=== PATIENT | female | born 1980 | race Caucasian/White ===

== ENCOUNTER 2017-08-15 10:51 | Emergency (ER) | payer MEDICAID ==
[~2017-08-15] VITALS: Ht 162.6 cm; Wt 60.9 kg
[~2017-08-15 10:51] MED LIST: CYCL-1 PO; IBUP-1985 PO; LOPE2CAP PO; NO HOME MEDS; ONDA4TAB12 PO; ONDA8TAB9 PO
[2017-08-15 10:53] VITALS: BP 106/73
[2017-08-15 11:20] LABS: CLARITY,URINE CLOUDY (Clear); COLOR,URINE YELLOW (Yellow); GLUCOSE, URINE 100 mg/dl (Neg); KETONES,URINE NEGATIVE (Neg); LEUKOCYTE ESTERASE ,URINE SMALL (Neg); NITRITES, URINE NEGATIVE (Neg); OCCULT BLOOD,URINE MODERATE (Neg); PH,URINE 5.5 (4.8-8.0); PROTEIN,URINE TRACE mg/dl (Neg)
[2017-08-15 11:21] LABS: UA COLLECTION TYPE CLN CATCH MIDSTREAM
[2017-08-15 11:23] LABS: URINE HCG NEGATIVE (NEG)
[2017-08-15 11:33] LABS: WBC,URINE 50-100 /HPF (0-4)
[2017-08-15 11:34] LABS: BACTERIA,URINE 3+ /HPF (Neg); MUCUS STRANDS MANY /LPF (Neg); SQUAMOUS EPITHELIAL CELL,UR MANY /LPF (FEW)
[2017-08-15 11:34] LABS: BASOPHILS % (AUTO) 0.4 % (0-1); EOSINOPHILS % (AUTO) 0.2 % (0-6); HEMATOCRIT 41.4 % (35.0-45.0); HEMOGLOBIN 14.2 g/dl (12.0-16.0); INR 1.1 INR; LYMPHOCYTES # (AUTO) 1.4 X10'3 (1.1-4.8); LYMPHOCYTES % (AUTO) 12.4 % (21-51); MEAN CORPUSCULAR HGB CONC 34.3 % (33.0-36.5); MEAN CORPUSCULAR VOLUME 90.5 FL (78-98); MEAN PLATELET VOLUME 7.4 FL (7.4-10.4); MONOCYTES # (AUTO) 0.5 X10'3 (0-0.9); MONOCYTES % (AUTO) 4.7 % (2-12); NEUTROPHILS # (AUTO) 9.6 X10'3 (1.8-7.7); NEUTROPHILS % (AUTO) 82.3 % (42-75); PLATELET COUNT 278 X10'3 (140-440); PROTHROMBIN TIME 10.9 SECONDS (9.0-12.0); RED BLOOD COUNT 4.58 X10'6 (4.20-5.60); RED CELL DISTRIBUTION WIDTH 12.3 % (11.5-14.5); WHITE BLOOD COUNT 11.6 X10'3 (4.5-11.0)
[2017-08-15] MEDS ORDERED: BACDS PO (11:37)
[2017-08-15 11:41] LABS: ALANINE AMINOTRANSFERASE 24 U/L (12-78); ALBUMIN/GLOBULIN RATIO 0.7 (1.1-1.5); ALKALINE PHOSPHATASE 80 IU/L (46-116); ANION GAP 9 (8-16); ASPARTATE AMINO TRANSFERASE 13 U/L (10-37); BILIRUBIN,TOTAL 0.5 MG/DL (0.1-1.0); BLOOD UREA NITROGEN 6 MG/DL (7-18); BUN/CREATININE RATIO 7.3 (6.6-38.0); CALCIUM 8.5 MG/DL (8.5-10.1); CHLORIDE 102 MMOL/L (99-107); CREATININE 0.82 MG/DL (0.40-0.90); GLUCOSE 116 MG/DL (70-104); POTASSIUM 3.1 MMOL/L (3.5-5.1); SODIUM 136 MMOL/L (135-145); TOTAL CARBON DIOXIDE 24.6 MMOL/L (24-32); TOTAL PROTEIN 7.5 G/DL (6.4-8.2); eGFR 78 ML/MIN
== END 2017-08-15 11:49 | disposition home or self-care (01) ==
LOC: ER 10:52
DX: N39.0 Urinary tract infection, site not specified (principal); Z79.899 Other long term (current) drug therapy; Z56.0 Unemployment, unspecified
CPT/HCPCS: 36415; 80053; 81001; 81025; 85025; 85610; 99284

== ENCOUNTER 2017-09-03 08:17 | Emergency (ER) | payer MEDICAID ==
[~2017-09-03] VITALS: Ht 162.6 cm; Wt 59.0 kg
[2017-09-03 08:29] VITALS: BP 97/64
[2017-09-03 09:04] LABS: URINE HCG NEGATIVE (NEG)
[2017-09-03 09:07] LABS: CLARITY,URINE CLOUDY (Clear); COLOR,URINE YELLOW (Yellow); GLUCOSE, URINE NEGATIVE (Neg); KETONES,URINE TRACE mg/dl (Neg); LEUKOCYTE ESTERASE ,URINE LARGE (Neg); NITRITES, URINE NEGATIVE (Neg); OCCULT BLOOD,URINE SMALL (Neg); PROTEIN,URINE 30 mg/dl (Neg)
[2017-09-03 09:12] LABS: UA COLLECTION TYPE CLN CATCH MIDSTREAM
[2017-09-03 09:15] LABS: WBC,URINE 50-100 /HPF (0-4)
[2017-09-03 09:16] LABS: BACTERIA,URINE 2+ /HPF (Neg); RBC,URINE 0-2 /HPF (0-2); SQUAMOUS EPITHELIAL CELL,UR MODERATE /LPF (FEW)
[2017-09-03 09:17] LABS: AMORPHOUS PHOSPHATES 1+; MUCUS STRANDS MODERATE /LPF (Neg)
[2017-09-03] MEDS ORDERED: PHEN-716 PO (09:27)
[2017-09-03] MEDS ORDERED: CEPH500C5 PO (09:27)
== END 2017-09-03 09:39 | disposition home or self-care (01) ==
LOC: ER 08:17
DX: N39.0 Urinary tract infection, site not specified (principal); Z79.899 Other long term (current) drug therapy; Z56.0 Unemployment, unspecified
CPT/HCPCS: 81001; 81025; 87077; 87088; 87186; 99284

== ENCOUNTER 2018-02-02 08:10 | Emergency (ER) | payer MEDICAID ==
[~2018-02-02] VITALS: Ht 162.6 cm; Wt 61.4 kg
[~2018-02-02 08:10] MED LIST changes: +CEPH500C5 PO; +PHEN-716 PO
[2018-02-02] MEDS ORDERED: CLIN150C2 PO (08:57)
[2018-02-02 09:32] VITALS: BP 80/49
== END 2018-02-02 09:34 | disposition home or self-care (01) ==
LOC: ER 08:10
DX: L02.31 Cutaneous abscess of buttock (principal); F15.90 Other stimulant use, unspecified, uncomplicated; Z79.2 Long term (current) use of antibiotics; Z79.899 Other long term (current) drug therapy; Z56.0 Unemployment, unspecified
CPT/HCPCS: 99283

== ENCOUNTER 2018-04-21 12:54 | Emergency (ER) | payer MEDICAID ==
[~2018-04-21] VITALS: Ht 154.9 cm; Wt 61.3 kg
[2018-04-21 13:26] VITALS: BP 93/64
[2018-04-21] MEDS ORDERED: ibuprofen 200mg tablet PO ONE (13:55)
--- NOTE | 2018-04-21 14:15 | NUR ---
pt ambulating independently, pt medication given for pain and pain conrolled. d/c instructions given with education. pt verbalized understanding on followup plan and when if necessary to return to ER.
== END 2018-04-21 14:20 | disposition home or self-care (01) ==
LOC: ER 12:55
DX: R07.81 Pleurodynia (principal); F17.200 Nicotine dependence, unspecified, uncomplicated; F12.10 Cannabis abuse, uncomplicated; F15.10 Other stimulant abuse, uncomplicated; Z56.0 Unemployment, unspecified; Z79.899 Other long term (current) drug therapy
CPT/HCPCS: 71046; 99283

== ENCOUNTER 2019-02-09 17:24 | Emergency (ER) | payer MEDICAID ==
[~2019-02-09] VITALS: Ht 162.6 cm; Wt 61.4 kg
[~2019-02-09 17:24] MED LIST changes: -CEPH500C5 PO
[2019-02-09 17:49] VITALS: BP 128/85
--- NOTE | 2019-02-09 18:52 | NUR ---
PT CALLED TO BE ROOMED IN MAIN ER - SHE IS SITTING IN LOBBY BUT DOESN'T WISH TO COME BACK. AWARE AND HAS ALREADY SEEN PT. SHE IS NOW UP FOR D\C.
== END 2019-02-09 18:57 | disposition home or self-care (01) ==
LOC: ER 17:25
DX: F10.129 Alcohol abuse with intoxication, unspecified (principal); R51 Headache; F12.90 Cannabis use, unspecified, uncomplicated; F15.90 Other stimulant use, unspecified, uncomplicated; F17.200 Nicotine dependence, unspecified, uncomplicated; Z56.0 Unemployment, unspecified; Z98.890 Other specified postprocedural states; Z79.899 Other long term (current) drug therapy; Z59.0 Homelessness; Y90.0 Blood alcohol level of less than 20 mg/100 ml
CPT/HCPCS: 36415; 80320; 99283

== ENCOUNTER 2019-04-05 20:27 | Emergency (ER) | payer MEDICAID ==
[~2019-04-05] VITALS: Ht 157.5 cm; Wt 68.2 kg
[2019-04-05] MEDS ORDERED: thiamine 100mg tablet PO ONE (20:40)
[2019-04-05] MEDS ORDERED: normal saline 1000ML IV soln IVB ONE (20:40)
[2019-04-05] MEDS ORDERED: phenobarbital inj 260 MG in normal saline 100ml IV soln 100 ML IV ONE (20:40)
[2019-04-05] MEDS ORDERED: magnesium oxide 400mg tablet PO ONE (20:40)
--- NOTE | 2019-04-05 21:03 | NUR ---
she pulled out her IV there is blood on her leg. Will clean. made aware.
[2019-04-05 21:17] LABS: ALANINE AMINOTRANSFERASE 64 U/L (12-78); ALBUMIN 3.8 G/DL (3.4-5.0); ALBUMIN/GLOBULIN RATIO 1.2 (1.1-1.5); ALKALINE PHOSPHATASE 57 IU/L (46-116); ANION GAP 11 (8-16); ASPARTATE AMINO TRANSFERASE 42 U/L (10-37); BILIRUBIN,TOTAL 0.1 MG/DL (0.1-1.0); BLOOD UREA NITROGEN 8 MG/DL (7-18); BUN/CREATININE RATIO 12.3 (6.6-38.0); CALCIUM 7.9 MG/DL (8.5-10.1); CHLORIDE 108 MMOL/L (99-107); CREATININE 0.65 MG/DL (0.40-0.90); GLUCOSE 135 MG/DL (70-104); POTASSIUM 3.6 MMOL/L (3.5-5.1); SODIUM 146 MMOL/L (135-145); TOTAL PROTEIN 7.1 G/DL (6.4-8.2); eGFR > 90 ML/MIN
[2019-04-05 21:18] LABS: MAGNESIUM 2.2 MG/DL (1.5-2.4)
[2019-04-05 21:21] LABS: ETHANOL 0.424 GM/DL (0.0-0.010)
[2019-04-05 21:32] LABS: BASOPHILS # (AUTO) 0.1 X10'3 (0-0.2); BASOPHILS % (AUTO) 0.9 % (0-1); EOSINOPHILS % (AUTO) 0.6 % (0-6); HEMATOCRIT 41.8 % (35.0-45.0); HEMOGLOBIN 14.4 g/dl (12.0-16.0); LYMPHOCYTES # (AUTO) 2.3 X10'3 (1.1-4.8); MEAN CORPUSCULAR HEMOGLOBIN 31.5 PG (27.0-31.0); MEAN CORPUSCULAR HGB CONC 34.4 g/dL (33.0-36.5); MEAN CORPUSCULAR VOLUME 91.8 FL (78-98); MEAN PLATELET VOLUME 7.4 FL (7.4-10.4); MONOCYTES # (AUTO) 0.3 X10'3 (0-0.9); MONOCYTES % (AUTO) 5.3 % (2-12); NEUTROPHILS # (AUTO) 3.3 X10'3 (1.8-7.7); NEUTROPHILS % (AUTO) 54.2 % (42-75); PLATELET COUNT 274 X10'3 (140-440); RED BLOOD COUNT 4.55 X10'6 (4.20-5.60); RED CELL DISTRIBUTION WIDTH 12.5 % (11.5-14.5)
[2019-04-05] MEDS ORDERED: ondansetron/PF 4mg/2ml inj IV ONE (22:25)
--- NOTE | 2019-04-05 22:36 | NUR ---
pt asleep on her right side.
--- NOTE | 2019-04-05 23:05 | NUR ---
pt urinated the bed, techs will change her and place dry flows under her
--- NOTE | 2019-04-05 23:38 | NUR ---
pt asleep on her left side
[2019-04-06 02:12] VITALS: BP 98/50
--- NOTE | 2019-04-06 02:46 | NUR ---
SHE IS AWAKE AND WALKED TO THE BR AND IS HUNGRY SO I BROUGHT HER FOOD/DRINKS.
== END 2019-04-06 03:26 | disposition home or self-care (01) ==
LOC: ER 20:27
DX: F10.129 Alcohol abuse with intoxication, unspecified (principal); F41.9 Anxiety disorder, unspecified; F12.90 Cannabis use, unspecified, uncomplicated; F15.90 Other stimulant use, unspecified, uncomplicated; Z98.890 Other specified postprocedural states; Z56.0 Unemployment, unspecified; Z79.899 Other long term (current) drug therapy; Z59.0 Homelessness; Y90.0 Blood alcohol level of less than 20 mg/100 ml
CPT/HCPCS: 36415; 80053; 80320; 83735; 85025; 93005; 96365; 96375; 99284; J2405; J7030

== ENCOUNTER 2019-09-09 12:52 | Emergency (ER) | payer MEDICAID ==
[~2019-09-09] VITALS: Ht 162.6 cm; Wt 61.3 kg
[2019-09-09 13:00] VITALS: BP 142/88
[2019-09-09 13:50] LABS: BASOPHILS # (AUTO) 0.1 X10'3 (0-0.2); EOSINOPHILS % (AUTO) 0.2 % (0-6); HEMATOCRIT 40.8 % (35.0-45.0); HEMOGLOBIN 13.8 g/dl (12.0-16.0); LYMPHOCYTES # (AUTO) 2.1 X10'3 (1.1-4.8); LYMPHOCYTES % (AUTO) 29.6 % (21-51); MEAN CORPUSCULAR HEMOGLOBIN 31.1 PG (27.0-31.0); MEAN CORPUSCULAR VOLUME 91.5 FL (78-98); MEAN PLATELET VOLUME 7.6 FL (7.4-10.4); MONOCYTES # (AUTO) 0.4 X10'3 (0-0.9); NEUTROPHILS # (AUTO) 4.4 X10'3 (1.8-7.7); NEUTROPHILS % (AUTO) 63.2 % (42-75); PLATELET COUNT 282 X10'3 (140-440); RED BLOOD COUNT 4.45 X10'6 (4.20-5.60); RED CELL DISTRIBUTION WIDTH 13.2 % (11.5-14.5)
[2019-09-09 14:06] LABS: URINE HCG NEGATIVE (NEG)
[2019-09-09 14:13] LABS: ALANINE AMINOTRANSFERASE 32 U/L (12-78); ALBUMIN/GLOBULIN RATIO 1.1 (1.1-1.5); ALKALINE PHOSPHATASE 46 IU/L (46-116); ANION GAP 12 (8-16); ASPARTATE AMINO TRANSFERASE 40 U/L (10-37); BILIRUBIN,TOTAL 0.2 MG/DL (0.1-1.0); BLOOD UREA NITROGEN 18 MG/DL (7-18); BUN/CREATININE RATIO 20.2 (6.6-38.0); CALCIUM 8.6 MG/DL (8.5-10.1); CHLORIDE 103 MMOL/L (99-107); CREATININE 0.89 MG/DL (0.40-0.90); GLUCOSE 88 MG/DL (70-104); LIPASE 71 U/L (73-393); POTASSIUM 3.6 MMOL/L (3.5-5.1); SODIUM 139 MMOL/L (135-145); TOTAL CARBON DIOXIDE 24.4 MMOL/L (24-32); TOTAL PROTEIN 7.5 G/DL (6.4-8.2); eGFR 70 ML/MIN
[2019-09-09 14:20] LABS: CLARITY,URINE CLOUDY (Clear); COLOR,URINE YELLOW (Yellow); GLUCOSE, URINE NEGATIVE (Neg); KETONES,URINE NEGATIVE (Neg); LEUKOCYTE ESTERASE ,URINE NEGATIVE (Neg); NITRITES, URINE NEGATIVE (Neg); OCCULT BLOOD,URINE TRACE-LYSED (Neg); PROTEIN,URINE NEGATIVE (Neg)
[2019-09-09 14:31] LABS: UA COLLECTION TYPE CLN CATCH MIDSTREAM
[2019-09-09 14:36] LABS: AMORPHOUS PHOSPHATES 4+; BACTERIA,URINE FEW /HPF (Neg); HYALINE CASTS 0-3 /LPF (NEGATIVE); MUCUS STRANDS MODERATE /LPF (Neg); RBC,URINE 0-2 /HPF (0-2); SQUAMOUS EPITHELIAL CELL,UR MODERATE /LPF (FEW); WBC,URINE 0-4 /HPF (0-4)
[2019-09-09 14:50] LABS: ETHANOL 0.039 GM/DL (0.0-0.010)
[2019-09-09 17:25] LABS: URINE AMPHETAMINE SCREEN POSITIVE (Neg); URINE BARBITUATE SCREEN NEGATIVE (Neg); URINE BENZODIAZEPINES SCREEN NEGATIVE (Neg); URINE CANNABINOID SCREEN NEGATIVE (Neg); URINE COCAINE SCREEN NEGATIVE (Neg); URINE METHADONE SCREEN NEGATIVE (Neg); URINE OPIATE SCREEN NEGATIVE (Neg); URINE PHENCYCLIDINE SCREEN NEGATIVE (Neg)
== END 2019-09-09 14:32 | disposition home or self-care (01) ==
LOC: ER 12:53
DX: F10.20 Alcohol dependence, uncomplicated (principal); E86.0 Dehydration; R10.84 Generalized abdominal pain; F41.9 Anxiety disorder, unspecified; F12.90 Cannabis use, unspecified, uncomplicated; F15.90 Other stimulant use, unspecified, uncomplicated; Z98.890 Other specified postprocedural states; Z72.89 Other problems related to lifestyle; Z56.0 Unemployment, unspecified; Z79.899 Other long term (current) drug therapy; Y90.0 Blood alcohol level of less than 20 mg/100 ml
CPT/HCPCS: 36415; 80053; 80305; 80320; 81001; 81025; 83690; 85025; 99284

== ENCOUNTER 2021-05-04 10:37 | Emergency (ER) | payer MEDICAID ==
[~2021-05-04] VITALS: Ht 162.6 cm; Wt 75.0 kg
[2021-05-04 11:05] VITALS: BP 108/73
[2021-05-04] MEDS ORDERED: ibuprofen tablet 400 MG TABLET PO ONE (13:00)
[2021-05-04] MEDS ORDERED: HYDROcodone/acetaminophen 10/325mg tab PO ONE (13:00)
[2021-05-04] MEDS ORDERED: IBUP-1986 PO ×2 (13:19→14:17)
== END 2021-05-04 13:40 | disposition home or self-care (01) ==
LOC: ER 10:37
DX: S82.62XA Displaced fracture of lateral malleolus of left fibula, initial encounter for closed fracture (principal); M25.572 Pain in left ankle and joints of left foot; F41.9 Anxiety disorder, unspecified; F17.200 Nicotine dependence, unspecified, uncomplicated; F12.90 Cannabis use, unspecified, uncomplicated; F15.90 Other stimulant use, unspecified, uncomplicated; Z72.89 Other problems related to lifestyle; Z56.0 Unemployment, unspecified; Z98.890 Other specified postprocedural states; Z79.899 Other long term (current) drug therapy; W19.XXXA Unspecified fall, initial encounter; Y93.01 Activity, walking, marching and hiking; Y92.89 Other specified places as the place of occurrence of the external cause; Y99.8 Other external cause status
CPT/HCPCS: 29515; 73610; 99284

== ENCOUNTER 2021-11-02 13:49 | Emergency (ER) | payer MEDICAID ==
[~2021-11-02] VITALS: Ht 162.6 cm; Wt 69.5 kg
[~2021-11-02 13:49] MED LIST changes: -CYCL-1 PO; -IBUP-1985 PO; +IBUP-1986 PO; -LOPE2CAP PO; -ONDA4TAB12 PO; -ONDA8TAB9 PO; -PHEN-716 PO
[2021-11-02 14:52] VITALS: BP 125/95
--- NOTE | 2021-11-02 15:51 | NUR ---
pt states shes not waiting anylonger. ama'd [id number]
== END 2021-11-02 15:54 | disposition left against medical advice (07) ==
LOC: ER 13:50
DX: R51.9 Headache, unspecified (principal); Z53.21 Procedure and treatment not carried out due to patient leaving prior to being seen by health care provider

== ENCOUNTER 2023-03-15 14:33 | Emergency (ER) | payer MEDICAID ==
[~2023-03-15] VITALS: Ht 162.6 cm; Wt 70.2 kg
[2023-03-15] MEDS ORDERED: phenazopyridine 100mg tablet PO ONE (14:40)
[2023-03-15] MEDS ORDERED: ondansetron 4mg rapidly disintigrating tab PO ONE (14:40)
[2023-03-15] MEDS ORDERED: CefTRIAXone 2gm/D5W 50ml BAG 50 ML IV ONE (14:40)
[2023-03-15] MEDS ORDERED: ketorolac tromethamine 15mg/ml inj. IM ONE (14:40)
[2023-03-15] MEDS ORDERED: normal saline 1000ML IV soln IV ONE (14:40)
[2023-03-15 15:11] LABS: URINE HCG NEGATIVE (NEG)
[2023-03-15 15:36] LABS: BILIRUBIN,URINE NEGATIVE (Neg); CLARITY,URINE CLOUDY (Clear); COLOR,URINE YELLOW (Yellow); GLUCOSE, URINE NEGATIVE (Neg); KETONES,URINE NEGATIVE (Neg); LEUKOCYTE ESTERASE ,URINE MODERATE (Neg); OCCULT BLOOD,URINE MODERATE (Neg); PROTEIN,URINE 100 mg/dl (Neg); UROBILINOGEN,URINE 0.2 E.U/dL (0.2-1.0)
[2023-03-15 16:22] LABS: UA COLLECTION TYPE CLN CATCH MIDSTREAM
[2023-03-15 16:25] LABS: NITRITES, URINE NEGATIVE (Neg)
[2023-03-15 16:33] LABS: SQUAMOUS EPITHELIAL CELL,UR MODERATE /LPF (FEW); WBC,URINE TNTC /HPF (0-4)
[2023-03-15 16:34] LABS: BACTERIA,URINE FEW /HPF (Neg)
[2023-03-15] MEDS ORDERED: ketorolac trometh. 30mg/ml inj. IV ONE (17:00)
[2023-03-15 18:22] LABS: BASOPHILS % (AUTO) 0.4 % (0-1); EOSINOPHILS % (AUTO) 0.2 % (0-6); HEMATOCRIT 41.7 % (35.0-45.0); HEMOGLOBIN 13.9 g/dl (12.0-16.0); LYMPHOCYTES # (AUTO) 1.8 X10'3 (1.1-4.8); LYMPHOCYTES % (AUTO) 14.1 % (21-51); MEAN CORPUSCULAR HEMOGLOBIN 29.9 PG (27.0-31.0); MEAN CORPUSCULAR HGB CONC 33.4 g/dL (33.0-36.5); MEAN CORPUSCULAR VOLUME 89.7 FL (78-98); MONOCYTES % (AUTO) 7.5 % (2-12); NEUTROPHILS % (AUTO) 77.8 % (42-75); PLATELET COUNT 308 X10'3 (140-440); RED BLOOD COUNT 4.65 X10'6 (4.20-5.60); RED CELL DISTRIBUTION WIDTH 12.6 % (11.5-14.5); WHITE BLOOD COUNT 12.8 X10'3 (4.5-11.0)
[2023-03-15 18:29] LABS: ALBUMIN 3.4 G/DL (3.4-5.0); ANION GAP 12 (8-16); BLOOD UREA NITROGEN 10 MG/DL (7-18); BUN/CREATININE RATIO 12.7 (10.0-20.0); CALCIUM 8.9 MG/DL (8.5-10.1); CHLORIDE 98 MMOL/L (99-107); CREATININE 0.79 MG/DL (0.40-0.90); GLUCOSE 83 MG/DL (70-104); MAGNESIUM 2.2 MG/DL (1.5-2.4); SODIUM 134 MMOL/L (135-145); TOTAL CARBON DIOXIDE 24.4 MMOL/L (24-32); eCRCL 78 ML/MIN; eGFR 79 ML/MIN
[2023-03-15 18:30] LABS: POTASSIUM 4.3 MMOL/L (3.5-5.1)
[2023-03-15] MEDS ORDERED: ONDA8TAB13 PO (18:54)
[2023-03-15] MEDS ORDERED: CIPR500T88 PO (18:54)
[2023-03-15] MEDS ORDERED: IBUP-1986 PO (18:54)
[2023-03-15 19:05] LABS: SYPHILIS SCREENING TEST POC POSITIVE (Negative)
[2023-03-15 21:14] VITALS: BP 108/62; PULSE 61; TEMP 98; O2SAT 99
[2023-03-15 21:16] VITALS: RESP 16
== END 2023-03-15 21:18 | disposition home or self-care (01) ==
LOC: ER 14:34
DX: N10 Acute pyelonephritis (principal); F17.200 Nicotine dependence, unspecified, uncomplicated; F12.90 Cannabis use, unspecified, uncomplicated; F15.90 Other stimulant use, unspecified, uncomplicated; Z79.1 Long term (current) use of non-steroidal anti-inflammatories (NSAID); Z98.890 Other specified postprocedural states
CPT/HCPCS: 36415; 71045; 74176; 80048; 81001; 81025; 83605; 83735; 84145; 85025; 86592; 87040; 87077; 87088; 87186; 87210; 93005; 96360; 96361; 99285; J7030

== ENCOUNTER 2023-07-23 13:32 | Emergency (ER) | payer MEDICAID ==
[~2023-07-23] VITALS: Ht 162.6 cm; Wt 75.6 kg
[~2023-07-23 13:32] MED LIST changes: +ONDA8TAB13 PO
[2023-07-23] MEDS ORDERED: ZINC57OI3 TOP (15:05)
[2023-07-23] MEDS ORDERED: DIF150T PO (15:05)
[2023-07-23 15:34] VITALS: BP 128/91; PULSE 71; RESP 16; TEMP 98; O2SAT 97
== END 2023-07-23 15:36 | disposition home or self-care (01) ==
LOC: ER 13:33
DX: B35.6 Tinea cruris (principal); B37.2 Candidiasis of skin and nail; F41.9 Anxiety disorder, unspecified; F12.90 Cannabis use, unspecified, uncomplicated; F15.90 Other stimulant use, unspecified, uncomplicated; Z56.0 Unemployment, unspecified; Z72.89 Other problems related to lifestyle; Z79.899 Other long term (current) drug therapy
CPT/HCPCS: 99283

== ENCOUNTER 2024-05-08 09:23 | Emergency (ER) | payer MEDICAID ==
[~2024-05-08] VITALS: Ht 162.6 cm; Wt 70.9 kg
[~2024-05-08 09:23] MED LIST changes: +ONDA-245 PO; -ONDA8TAB13 PO; +ZINC57OI3 TOP
[2024-05-08 09:32] VITALS: BP 111/80; PULSE 77; RESP 16; O2SAT 97
[2024-05-08] MEDS ORDERED: MUPI22OI30 TOP (09:54)
== END 2024-05-08 10:06 | disposition home or self-care (01) ==
LOC: ER 09:23
DX: L02.821 Furuncle of head [any part, except face] (principal); F12.90 Cannabis use, unspecified, uncomplicated; F15.90 Other stimulant use, unspecified, uncomplicated; F41.9 Anxiety disorder, unspecified; F10.10 Alcohol abuse, uncomplicated; Y90.9 Presence of alcohol in blood, level not specified; Z56.0 Unemployment, unspecified; Z79.1 Long term (current) use of non-steroidal anti-inflammatories (NSAID); Z79.899 Other long term (current) drug therapy; Z98.890 Other specified postprocedural states
CPT/HCPCS: 99283

== ENCOUNTER 2024-05-12 11:07 | Emergency (ER) | payer MEDICAID ==
[~2024-05-12] VITALS: Ht 165.1 cm; Wt 70.8 kg
[~2024-05-12 11:07] MED LIST changes: +MUPI22OI30 TOP
[2024-05-12 12:09] VITALS: BP 119/97; PULSE 86; RESP 16; TEMP 98.9; O2SAT 99
== END 2024-05-12 12:05 | disposition home or self-care (01) ==
LOC: ER 11:08
DX: Z02.9 Encounter for administrative examinations, unspecified (principal); F41.9 Anxiety disorder, unspecified; F12.90 Cannabis use, unspecified, uncomplicated; F15.90 Other stimulant use, unspecified, uncomplicated; F10.10 Alcohol abuse, uncomplicated; Z56.0 Unemployment, unspecified; Z79.1 Long term (current) use of non-steroidal anti-inflammatories (NSAID); Z79.899 Other long term (current) drug therapy; Y90.9 Presence of alcohol in blood, level not specified
CPT/HCPCS: 99281

== ENCOUNTER 2024-05-15 10:17 | Emergency (ER) | payer MEDICAID ==
[~2024-05-15] VITALS: Ht 162.6 cm; Wt 70.7 kg
[~2024-05-15 10:17] MED LIST changes: -MUPI22OI30 TOP
[2024-05-15 10:29] VITALS: BP 129/93; PULSE 87; O2SAT 100
[2024-05-15 11:18] VITALS: RESP 16
[2024-05-15] MEDS: ketorolac trometh 15mg/ml vial 15 MG/ML ML IM ONE (11:18)
[2024-05-15] MEDS: TETanus/Pertussis (Acell)/Diphther VAC/PF (Tdap-Adult) 0.5ml syringe IMVAC ONE (11:21)
[2024-05-15] MEDS: LIDOcaine 1% W/epiNEPHrine 1:100,000 20ml vial IJ ONE (11:29)
[2024-05-15] MEDS ORDERED: SULF1TAB49 PO (12:37)
[2024-05-15 12:40] VITALS: TEMP 98
== END 2024-05-15 12:41 | disposition home or self-care (01) ==
LOC: ER 10:18
DX: L02.811 Cutaneous abscess of head [any part, except face] (principal); F12.90 Cannabis use, unspecified, uncomplicated; F15.90 Other stimulant use, unspecified, uncomplicated; F41.9 Anxiety disorder, unspecified; F10.10 Alcohol abuse, uncomplicated; Z56.0 Unemployment, unspecified; Z79.1 Long term (current) use of non-steroidal anti-inflammatories (NSAID); Z79.899 Other long term (current) drug therapy; Z98.890 Other specified postprocedural states; Y90.9 Presence of alcohol in blood, level not specified
CPT/HCPCS: 10060; 90471; 90715; 96372; 99284; A6266; J1885; A6449

== ENCOUNTER 2024-05-20 07:20 | Emergency (ER) | payer MEDICAID ==
[~2024-05-20] VITALS: Ht 162.6 cm; Wt 71.6 kg
[~2024-05-20 07:20] MED LIST changes: +SULF1TAB49 PO
[2024-05-20 07:23] VITALS: BP 119/81; PULSE 80; RESP 16; TEMP 97.9; O2SAT 100
== END 2024-05-20 08:09 | disposition home or self-care (01) ==
LOC: ER 07:20
DX: F10.90 Alcohol use, unspecified, uncomplicated (principal); Y90.9 Presence of alcohol in blood, level not specified; F15.90 Other stimulant use, unspecified, uncomplicated; F12.90 Cannabis use, unspecified, uncomplicated
CPT/HCPCS: 99281

== ENCOUNTER 2024-06-26 22:27 | Emergency (ER) | payer MEDICAID ==
[~2024-06-26] VITALS: Ht 162.6 cm; Wt 60.9 kg
[~2024-06-26 22:27] MED LIST changes: -SULF1TAB49 PO
[2024-06-26 22:34] VITALS: TEMP 98.7
[2024-06-26 23:06] LABS: BASOPHILS # (AUTO) 0.1 X10'3 (0-0.2); BASOPHILS % (AUTO) 0.8 % (0-1); EOSINOPHILS % (AUTO) 0.2 % (0-6); HEMATOCRIT 40.6 % (35.0-45.0); HEMOGLOBIN 14.1 g/dl (12.0-16.0); LYMPHOCYTES # (AUTO) 2.1 X10'3 (1.1-4.8); LYMPHOCYTES % (AUTO) 27.7 % (21-51); MEAN CORPUSCULAR HEMOGLOBIN 30.8 PG (27.0-31.0); MEAN CORPUSCULAR HGB CONC 34.7 g/dL (33.0-36.5); MEAN CORPUSCULAR VOLUME 88.6 FL (78-98); MEAN PLATELET VOLUME 7.2 FL (7.4-10.4); MONOCYTES # (AUTO) 0.5 X10'3 (0-0.9); MONOCYTES % (AUTO) 6.3 % (2-12); PLATELET COUNT 297 X10'3 (140-440); RED BLOOD COUNT 4.58 X10'6 (4.20-5.60); RED CELL DISTRIBUTION WIDTH 12.6 % (11.5-14.5); WHITE BLOOD COUNT 7.8 X10'3 (4.5-11.0)
[2024-06-26 23:29] LABS: ALANINE AMINOTRANSFERASE 61 U/L (12-78); ALBUMIN 4.4 G/DL (3.4-5.0); ALBUMIN/GLOBULIN RATIO 1.4 (1.1-1.5); ALKALINE PHOSPHATASE 68 IU/L (46-116); AMYLASE 26 U/L (25-115); ANION GAP 12 (8-16); ASPARTATE AMINO TRANSFERASE 30 U/L (10-37); BILIRUBIN,TOTAL 0.7 MG/DL (0.1-1.0); BLOOD UREA NITROGEN 16 MG/DL (7-18); BUN/CREATININE RATIO 15.5 (10.0-20.0); CALCIUM 9.2 MG/DL (8.5-10.1); CHLORIDE 104 MMOL/L (99-107); CREATININE 1.03 MG/DL (0.40-0.90); GLUCOSE 98 MG/DL (70-104); LIPASE 21 U/L (16-77); SODIUM 141 MMOL/L (135-145); TOTAL CARBON DIOXIDE 24.6 MMOL/L (24-32); TOTAL PROTEIN 7.5 G/DL (6.4-8.2); eCRCL 59 ML/MIN; eGFR 58 ML/MIN
--- NOTE | 2024-06-27 00:19 | Physician Documentation ---
History of Present Illness ~ Chief Complaint: Abdominal Pain Stated Complaint: ABD PAIN Time Seen by MD: 00:09 Primary Medical Doctor: NO PMD HPI Patient presents to the emergency room for evaluation of intermittent abdominal pain. She reports this pain has been going on for the past six months but got worse tonight. Symptoms are bilateral but greater on the left with cramping lasting a proximally 20 seconds every 5 minutes. Regular bowel movements. She reports that she just finished her menstrual cycle of one-week ago. Denies any dysuria or history of constipation. No fevers. Medication Reconciliation Allergies: Coded Allergies: No Known Allergies (Unverified , 06/26/24) Scheduled Ibuprofen (Ibuprofen), 1 TAB PO Q8H Ibuprofen (Ibuprofen), 1 TAB PO Q8H Ibuprofen (Ibuprofen), 1 TAB PO Q8H Zinc Oxide (Desitin), 1 APPLIC TOP Q6H Scheduled PRN Ondansetron 8mg ODT (Ondansetron Odt), 1 TAB PO TID PRN for nausea/vomiting Miscellaneous Medications Home Med List (No Home Medications), (Reported) Past Medical History Past Medical History: MRSA Abscess, Anxiety Past Surgical History: Alcohol Use: Abuse Drug Use: marijuana, methamphetamine Lives with: Family Lives In: Home Occupation: unemployed Review of Systems ROS All review of systems negative except as per HPI Physical Exam Vital Signs: Temperature: 98.7, Source: Temporal, Heart Rate: 88, Respiratory Rate: 16, BP: 125/83, Pulse Oximetry: 100, Weight: 60.900 Oxygen Flow Rate: 0 Physical Exam General: Patient is awake, alert, oriented x4 in no acute distress and well appearing.~ Head: Normocephalic and atraumatic. Eyes: Conjunctival normal. EOMI. PERRL. ENT: Mucous membranes moist. Neck: Supple, trachea is midline. Chest: Clear to auscultation bilaterally without rales, rhonchi, or wheezes. There is no accessory muscle use or retractions. Cardiac: RRR without murmurs, gallops, or rubs. Abd: Soft, nondistended, mild tenderness to deep palpation on left abdomen without peritonitis. No adnexal tenderness Progress Results/Orders Results/Orders Orders - LOI BENAVIDES MD Cult Urine + [address] (06/27/24 01:46) Completed Orders - LOI BENAVIDES MD Hcg, Ur Ql (06/26/24 22:38) Cbc/Diff (06/26/24 22:38) BMP (06/26/24 22:38) Amylase (06/26/24 22:38) Lipase (06/26/24 22:38) CMP (06/26/24 22:38) Ibuprofen Tablet (Motrin Tablet) (06/27/24 00:30) Dicyclomine Capsule (Bentyl Capsule) (06/27/24 00:30) Ua W/Microscopic, Cult If Ind (06/27/24 00:40) Medications Received in ER Medications (Trade) Dose Ordered Sig/Tan Route PRN Reason Start Time Stop Time Status Last Admin Dose Admin (Motrin tablet) 800 mg ONCE ONCE PO 06/27/24 00:30 06/27/24 00:31 DC 06/27/24 00:40 800 MG (Bentyl capsule) 20 mg ONCE ONCE PO 06/27/24 00:30 06/27/24 00:31 DC 06/27/24 00:40 20 MG Vital Signs 06/26/24 06/27/24 22:34 00:34 Temp 98.7 Pulse 88 70 Resp 16 14 B/P (MAP) 125/83 131/82 (98) Pulse Ox 100 99 O2 Flow Rate 0 0 Laboratory Tests Test 06/26/24 23:01 06/27/24 00:40 White Blood Count 7.8 Red Blood Count 4.58 Hemoglobin 14.1 Hematocrit 40.6 Mean Corpuscular Volume 88.6 Mean Corpuscular Hemoglobin 30.8 Mean Corpuscular Hemoglobin Concent 34.7 Red Cell Distribution Width 12.6 Platelet Count 297 Mean Platelet Volume 7.2 L Neutrophils (%) (Auto) 65.0 Lymphocytes (%) (Auto) 27.7 Monocytes (%) (Auto) 6.3 Eosinophils (%) (Auto) 0.2 Basophils (%) (Auto) 0.8 Neutrophils # (Auto) 5.0 Lymphocytes # (Auto) 2.1 Monocytes # (Auto) 0.5 Eosinophils # (Auto) 0.0 Basophils # (Auto) 0.1 CBC Comment Sodium Level 141 Potassium Level 4.0 Chloride Level 104 Carbon Dioxide Level 24.6 Anion Gap 12 Blood Urea Nitrogen 16 Creatinine 1.03 H Estimated GFR/1.73 m2 58 BUN/Creatinine Ratio 15.5 Glucose Level 98 Calcium Level 9.2 Total Bilirubin 0.7 Aspartate Amino Transf (AST/SGOT) 30 Alanine Aminotransferase (ALT/SGPT) 61 Alkaline Phosphatase 68 Total Protein 7.5 Albumin 4.4 Globulin 3.1 Albumin/Globulin Ratio 1.4 Amylase Level 26 Lipase 21 Chemistry Comments Urine Specimen Description Cln catch midstream Urine Color Yellow Urine Clarity Clear Urine pH 6.0 Urine Specific [place] 1.020 Urine Protein Negative Urine Glucose (UA) Negative Urine Ketones 40 H Urine Occult Blood Negative Urine Nitrite Negative Urine Bilirubin Negative Urine Urobilinogen 0.2 Urine Leukocyte Esterase Small H Urine RBC 0-2 Urine WBC 5-10 H Urine Squamous Epithelial Cells Moderate Urine Bacteria Few Urine Mucus Moderate Urine Culture Indicated Indicated Volume Urine Centrifuged 10 ml Urine HCG, Qualitative Negative Urine Comment Medical Decision Making Findings Patient presents to the emergency room with abdominal pain as per HPI. Differentials include but are not limited to menstrual cramps, gas, con stipation, intra-abdominal infection therefore emergent labs ordered which were reassuring. Symptoms have improved. Given risks versus benefits of radiation exposure and reassuring history physical exam and labs and he had not feel patient requires a CT scan. I do not suspect gallbladder pathology. Conservative management discussed. Departure Disposition: HOME / SELF CARE / HOMELESS Impression: Primary Impression: Abdominal pain Condition: Stable Discharge Instructions: Abdominal Pain (Nonspecific) Referrals: NO PRIMARY CARE PROVIDER (PCP) Prescriptions Dicyclomine Hcl* (Bentyl*) 10 Mg Capsule 1 CAP PO Q8H for Cramping for 30 Days, #90 CAP Prov: LOI BENAVIDES MD 06/27/24 Education Educated: Patient Educated regarding: diagnosis, need for follow up Signature Scribe Signature: No scribe Attestation: The note accurately reflects work and decisions made by me.Loi Benavides MD 06/27/24 01:50 LOI BENAVIDES MD June 27, 2024 00:19
[2024-06-27] MEDS: ibuprofen tablet 400 MG TABLET PO ONE (00:40)
[2024-06-27] MEDS: dicyclomine 10 MG capsule PO ONE (00:40)
[2024-06-27 00:52] LABS: URINE HCG NEGATIVE (NEG)
[2024-06-27 01:37] LABS: BILIRUBIN,URINE NEGATIVE (Neg); CLARITY,URINE CLEAR (Clear); COLOR,URINE YELLOW (Yellow); GLUCOSE, URINE NEGATIVE (Neg); LEUKOCYTE ESTERASE ,URINE SMALL (Neg); NITRITES, URINE NEGATIVE (Neg); OCCULT BLOOD,URINE NEGATIVE (Neg); PROTEIN,URINE NEGATIVE (Neg); UROBILINOGEN,URINE 0.2 E.U/dL (0.2-1.0)
[2024-06-27 01:38] LABS: KETONES,URINE 40 mg/dl (Neg)
[2024-06-27 01:43] LABS: UA COLLECTION TYPE CLN CATCH MIDSTREAM
[2024-06-27 01:44] LABS: MUCUS STRANDS MODERATE /LPF (Neg); SQUAMOUS EPITHELIAL CELL,UR MODERATE /LPF (FEW)
[2024-06-27 01:45] LABS: BACTERIA,URINE FEW /HPF (Neg); RBC,URINE 0-2 /HPF (0-2)
[2024-06-27] MEDS ORDERED: DICY10CA88 PO (01:50)
[2024-06-27 01:56] VITALS: BP 132/82; PULSE 78; RESP 16; O2SAT 98
== END 2024-06-27 02:01 | disposition home or self-care (01) ==
LOC: ER 22:27
DX: R10.84 Generalized abdominal pain (principal); F10.10 Alcohol abuse, uncomplicated; F12.90 Cannabis use, unspecified, uncomplicated; F15.90 Other stimulant use, unspecified, uncomplicated; Z79.899 Other long term (current) drug therapy; Z98.890 Other specified postprocedural states; Z56.0 Unemployment, unspecified; Y90.9 Presence of alcohol in blood, level not specified
CPT/HCPCS: 36415; 80053; 81001; 81025; 82150; 83690; 85025; 87088; 99283

== ENCOUNTER 2024-07-15 18:55 | Emergency (ER) | payer MEDICAID ==
[~2024-07-15] VITALS: Ht 162.6 cm; Wt 72.6 kg
[~2024-07-15 18:55] MED LIST changes: +DICY10CA88 PO
[2024-07-15 19:23] VITALS: BP 133/82; PULSE 61; RESP 17; TEMP 98.2; O2SAT 98
== END 2024-07-15 22:08 | disposition left against medical advice (07) ==
LOC: ER 18:56
DX: L02.811 Cutaneous abscess of head [any part, except face] (principal); Z53.21 Procedure and treatment not carried out due to patient leaving prior to being seen by health care provider

== ENCOUNTER 2024-07-18 10:48 | Emergency (ER) | payer MEDICAID ==
[~2024-07-18] VITALS: Ht 162.6 cm; Wt 70.8 kg
[2024-07-18 10:58] VITALS: BP 135/86; PULSE 74; RESP 16; O2SAT 99
[2024-07-18] MEDS: LIDOcaine 1% W/epiNEPHrine 1:100,000 20ml vial IJ ONE (11:28)
[2024-07-18] MEDS ORDERED: SULF1TAB49 PO (11:47)
--- NOTE | 2024-07-18 11:47 | Physician Documentation ---
History of Present Illness ~ Chief Complaint: Abscess Stated Complaint: BUMP ON HEAD Time Seen by MD: 11:12 OK to notify your PCP?: Yes Primary Medical Doctor: NO PMD Source: patient Mode of Arrival: POV Exam Limitations: no limitations HPI 44-year-old female who is here with lump the on scalp which is painful x 3days. Had this before on her back where she had to get drained and she is assuming she needs the same thing. No pre arrival treatment. Tetanus Within 5 Years: Yes (Didnt ask) Medication Reconciliation Allergies: Coded Allergies: No Known Allergies (Unverified , 07/15/24) Scheduled Dicyclomine Hcl* (Bentyl*), 1 CAP PO Q8H Ibuprofen (Ibuprofen), 1 TAB PO Q8H Ibuprofen (Ibuprofen), 1 TAB PO Q8H Ibuprofen (Ibuprofen), 1 TAB PO Q8H Sulfamethoxazole/Trimethoprim (Bactrim Ds Tablet), 1 TAB PO Q12H Zinc Oxide (Desitin), 1 APPLIC TOP Q6H Scheduled PRN Ondansetron 8mg ODT (Ondansetron Odt), 1 TAB PO TID PRN for nausea/vomiting Miscellaneous Medications Home Med List (No Home Medications), (Reported) Past Medical History Past Medical History: MRSA Abscess, Anxiety Past Surgical History: Smoking Status: Current every day smoker Alcohol Use: Abuse Drug Use: marijuana, methamphetamine Lives with: Family Lives In: Home Occupation: unemployed Review of Systems All Other Systems at this time: Reviewed and Negative Physical Exam Vital Signs: Temperature: 98.4, Source: Oral, Heart Rate: 74, Respiratory Rate: 16, BP: 135/86, Pulse Oximetry: 99, Weight: 70.800 Oxygen Flow Rate: 0 Physical Exam General Appearance: Alert, WD/WN. NAD. HEENT: NCAT, PERRL, EOMI. Neck: Supple, trachea midline. Cardiovascular: RRR. No m/r/g. Lungs: CTAB. Breathing unlabored Extremities: Normal inspection. No edema. Skin: Warm/dry, normal color. FIRM NODULE ON SCALP ERYTHEMATOUS TTP. NO SURROUNDING ERYTHEMA. Neurological: Alert and oriented x4, normal gait. Psychiatric: Affect congruent with mood. Procedures I & D Procedure : Site: SCALP Anesthesia: Lidocaine w/ Epi Volume Anesthetic (mls): 2 Blade Size: 11 Incision: pus drained, blood drained Tolerated Procedure Well?: yes, no complications Progress Results/Orders Results/Orders Orders - YAEL SEPULVEDA Laceration/I&D Tray Set Up (07/18/24 11:14) Cult (Aer) Routine C&S+Gram St (07/18/24 11:14) Completed Orders - YAEL SEPULVEDA Lidocaine 1% W/Epi 1:100,000 (Xylocaine (07/18/24 11:15) Vital Signs 07/18/24 07/18/24 10:58 12:19 Temp 98.4 98.4 Pulse 74 Resp 16 B/P (MAP) 135/86 Pulse Ox 99 O2 Flow Rate 0 Microbiology Date/Time Source Procedure Growth Status 07/18/24 12:39 Scalp Abscess Routine Culture - Preliminary Resulted Medical Decision Making Differential Dx:Considerations: Include: Abscess, Bacteremia, Cellulitis, Erysipelas, Felon, Gas gangrene, Hidrademitis suppurativa, Impetigo, Lymphangitis, Osteromyelitis, Paronychia, Septicemia Departure Time of Disposition: 11:47 Disposition: 01 HOME / SELF CARE / HOMELESS Impression: Primary Impression: Infected sebaceous cyst of skin Condition: Stable Discharge Instructions: Skin Abscess, [id number] Additional Instructions: ANTIBIOTIC SENT TO PHARMACY WARM COMPRESSES F/U WITH PCP TO GET CYST REMOVED WHEN INFECTION RESOLVES Referrals: NO PRIMARY CARE PROVIDER (PCP) Prescriptions Sulfamethoxazole/Trimethoprim (Bactrim Ds Tablet) 800 Mg-160 Mg Tablet 1 TAB PO Q12H for 10 Days, #20 TAB Prov: YAEL SEPULVEDA 07/18/24 Education Educated: Patient Educated regarding: diagnosis, treatment, need for follow up Signature Scribe Signature: X Attestation: YAEL FRIEDMAN Jul 18, 2024 11:47
[2024-07-18 12:19] VITALS: TEMP 98.4
== END 2024-07-18 12:21 | disposition home or self-care (01) ==
LOC: ER 10:49
DX: Z79.899 Other long term (current) drug therapy (principal); F41.9 Anxiety disorder, unspecified; F17.200 Nicotine dependence, unspecified, uncomplicated; F12.90 Cannabis use, unspecified, uncomplicated; F15.90 Other stimulant use, unspecified, uncomplicated; Z56.0 Unemployment, unspecified; L72.3 Sebaceous cyst
CPT/HCPCS: 10060; 87070; 87077; 87186; 99283; A6449

== ENCOUNTER 2024-07-21 09:06 | Emergency (ER) | payer MEDICAID ==
[~2024-07-21] VITALS: Ht 162.6 cm; Wt 72.2 kg
[~2024-07-21 09:06] MED LIST changes: +SULF1TAB49 PO
[2024-07-21 09:29] VITALS: BP 138/87; PULSE 76; RESP 18; O2SAT 98
[2024-07-21] MEDS: LIDOcaine 1% W/epiNEPHrine 1:100,000 20ml vial SQ ONE (10:14)
--- NOTE | 2024-07-21 11:17 | Physician Documentation ---
History of Present Illness ~ Chief Complaint: Abscess Stated Complaint: BUMP ON THE BACK OF HEAD Time Seen by MD: 09:50 Primary Medical Doctor: NO PMD HPI Patient returns to the ED with ongoing complaints of a suspected abscess/possible cyst on the superior aspect right side of her scalp. Recently here and seen for her concerns along with having an I and D. he had placed on antibiotics. Patient is also in a recovery program. Denies any fevers nausea vomiting or diarrhea Day of Onset: Jul 21, 2024 Tetanus Within 5 Years: Yes (Didnt ask) Medication Reconciliation Allergies: Coded Allergies: No Known Allergies (Unverified , 07/21/24) Scheduled Dicyclomine Hcl* (Bentyl*), 1 CAP PO Q8H Ibuprofen (Ibuprofen), 1 TAB PO Q8H Ibuprofen (Ibuprofen), 1 TAB PO Q8H Ibuprofen (Ibuprofen), 1 TAB PO Q8H Sulfamethoxazole/Trimethoprim (Bactrim Ds Tablet), 1 TAB PO Q12H Zinc Oxide (Desitin), 1 APPLIC TOP Q6H Scheduled PRN Ondansetron 8mg ODT (Ondansetron Odt), 1 TAB PO TID PRN for nausea/vomiting Miscellaneous Medications Home Med List (No Home Medications), (Reported) Past Medical History Past Medical History: MRSA Abscess, Anxiety Past Surgical History: Alcohol Use: Abuse Drug Use: marijuana, methamphetamine Lives with: Family Lives In: Home Occupation: unemployed Review of Systems All Other Systems at this time: Reviewed and Negative ROS As stated above in the HPI, otherwise all systems are reviewed and negative. Physical Exam Vital Signs: Temperature: 98.3, Source: Oral, Heart Rate: 76, Respiratory Rate: 18, BP: 138/87, Pulse Oximetry: 98, Weight: 72.200 Physical Exam General: Alert, no apparent distress. HEENT: PERRL, EOMI, no injection, moist mucous membranes. Cm raised and erythematous area on the right superior aspect of the scalp with notable drainage + purulent discharge Neurologic: Oriented x4. Psychiatric: Normal mood and affect. Skin: Normal color, warm and dry. No edema, no ecchymosis. Procedures I & D Procedure : Site: right superior scalp Anesthesia: Lidocaine w/ Epi Volume Anesthetic (mls): 6 Blade Size: 11 Prep/Supplies: irrigated, packing placed Incision: pus drained Tolerated Procedure Well?: yes, no complications Progress Results/Orders Results/Orders Orders - BJ ESQUEDA NP Laceration/I&D Tray Set Up (07/21/24 ) Completed Orders - BJ ESQUEDA NP Lidocaine 1% W/Epi 1:100,000 (Xylocaine (07/21/24 10:05) Vital Signs 07/21/24 09:29 Temp 98.3 Pulse 76 Resp 18 B/P (MAP) 138/87 Pulse Ox 98 Medical Decision Making Findings In his secondary I and D in to remove further purulent discharge. Irrigated after providing lidocaine. Made a 1.5 cm incision. Placed a one point 5 in of quarter-inch packing. Departure Disposition: HOME / SELF CARE / HOMELESS Impression: Primary Impression: Abscess Condition: Stable Discharge Instructions: Abscess, Care After Referrals: NO PRIMARY CARE PROVIDER (PCP) Education Educated: Patient Educated regarding: diagnosis Signature Scribe Signature: g Attestation: The note accurately reflects work and decisions made by me.Bj Hernandez NP 07/21/24 11:18 BJ ESQUEDA NP Jul 21, 2024 11:17
[2024-07-21 11:36] VITALS: TEMP 98.3
== END 2024-07-21 11:37 | disposition home or self-care (01) ==
LOC: ER 09:06
DX: L02.811 Cutaneous abscess of head [any part, except face] (principal)
CPT/HCPCS: 10060; 99282; A6407; A6449

== ENCOUNTER 2024-07-28 07:52 | Emergency (ER) | payer MEDICAID ==
[~2024-07-28] VITALS: Ht 162.6 cm; Wt 72.5 kg
[2024-07-28 07:56] VITALS: RESP 15; TEMP 97.2
[2024-07-28 09:14] VITALS: BP 119/71; PULSE 62; O2SAT 99
--- NOTE | 2024-07-28 10:01 | Physician Documentation ---
History of Present Illness ~ Chief Complaint: Suture Removal Stated Complaint: GAUZE REMOVAL Time Seen by MD: 08:52 Primary Medical Doctor: NO PMD Source: patient, family HPI Patient is actually here today to have packing removed from wound/abscess that appears to of the impact in her scalp on the front right side. Patient states he has been taking antibiotic consistently over the last week and has no new or other concern or complaint at this time. She denies any fever or chills. Patient states the packing has been in place for about a week. Tetanus within 5 years?: Yes Medication Reconciliation Allergies: Coded Allergies: No Known Allergies (Unverified , 07/21/24) Scheduled Ibuprofen (Ibuprofen), 1 TAB PO Q8H Ibuprofen (Ibuprofen), 1 TAB PO Q8H Ibuprofen (Ibuprofen), 1 TAB PO Q8H Sulfamethoxazole/Trimethoprim (Bactrim Ds Tablet), 1 TAB PO Q12H Zinc Oxide (Desitin), 1 APPLIC TOP Q6H Scheduled PRN Ondansetron 8mg ODT (Ondansetron Odt), 1 TAB PO TID PRN for nausea/vomiting Miscellaneous Medications Home Med List (No Home Medications), (Reported) Discontinued Medications Dicyclomine Hcl* (Bentyl*), 1 CAP PO Q8H Discontinued Reason: Auto Discontinued Past Medical History Past Medical History: MRSA Abscess, Anxiety Past Surgical History: Alcohol Use: Abuse Drug Use: marijuana, methamphetamine Lives with: Family Lives In: Home Occupation: unemployed Review of Systems Constitutional: Denies: chills, fever, weakness Eyes: Denies: pain, blurred vision ENT: Denies: ear pain, nose pain, throat pain, mouth pain Respiratory: Denies: cough, shortness of breath Cardiovascular: Denies: chest pain, palpitations Gastrointestinal: Denies: abdominal pain, nausea, vomiting Genitourinary: Denies: burning, dysuria Female Genitalia: Denies: vaginal discharge, pelvic pain Neurological: Denies: headache, dizziness Musculoskeletal: Denies: pain, swelling Integumentary: Denies: rash, lesions Allergic/Immunologic: Denies: hives, itching Hematologic/Lymphatic: Denies: no symptoms reported Psychiatric: Denies: depression, anxiety Physical Exam Vital Signs: Temperature: 97.2, Source: Temporal, Heart Rate: 62, Respiratory Rate: 15, BP: 119/71, Pulse Oximetry: 99, Weight: 72.450 Oxygen Flow Rate: 0 Physical Exam General: Awake and Alert, no acute distress. HEENT: Exam the patient does have packing in place surrounding a wound of her scalp in the front right side in the hairline. The wound appears to be surrounded by scab. I do not appreciate any significant swelling or tenderness to palpation currently. Conjunctiva pink, Sclera clear, Mucus Membranes moist. Neck: Supple without masses and tenderness. Resp: Unlabored. Lungs clear to auscultation bilaterally. Heart: Regular Rate and rhythm, normal S1 and S2 without murmur, rub or gallop. Extremities: No cyanosis,clubbing or edema. Skin: Warm and Dry. Progress Results/Orders Results/Orders Vital Signs 07/28/24 07/28/24 07:56 09:14 Temp 97.2 Pulse 72 62 Resp 15 B/P (MAP) 102/70 119/71 (87) Pulse Ox 98 99 O2 Flow Rate 0 Medical Decision Making Findings Patient is actually here today to have packing removed from wound/abscess that appears to of the impact in her scalp on the front right side. Patient states he has been taking antibiotic consistently over the last week and has no new or other concern or complaint at this time. She denies any fever or chills. Patient did have packing removed today by myself. Patient tolerated well. Patient will wash her scalp with clean soap and water and will finish out course of antibiotics. Patient will follow up with primary care in 2-5 days if no better as needed sooner. Return to ED with any worsening, concerning or changing symptoms. Departure Disposition: HOME / SELF CARE / HOMELESS Impression: Primary Impression: Wound Condition: Improved Discharge Instructions: Incision and Drainage, Care After Additional Instructions: Patient did have packing removed today by myself. Patient tolerated well. Patient will wash her scalp with clean soap and water and will finish out course of antibiotics. Patient will follow up with primary care in 2-5 days if no better as needed sooner. Return to ED with any worsening, concerning or changing symptoms. Referrals: NO PRIMARY CARE PROVIDER (PCP) Signature Scribe Signature: No scribe Attestation: No scribe BRAYDEN CHAPMAN Jul 28, 2024 10:01
== END 2024-07-28 10:11 | disposition home or self-care (01) ==
LOC: ER 07:53
DX: L02.811 Cutaneous abscess of head [any part, except face] (principal); F41.9 Anxiety disorder, unspecified; F10.10 Alcohol abuse, uncomplicated; F12.90 Cannabis use, unspecified, uncomplicated; F15.90 Other stimulant use, unspecified, uncomplicated; Z79.899 Other long term (current) drug therapy; Z56.0 Unemployment, unspecified; Y90.9 Presence of alcohol in blood, level not specified
CPT/HCPCS: 99281

== ENCOUNTER 2024-09-04 13:03 | Emergency (ER) | payer MEDICAID ==
[~2024-09-04] VITALS: Ht 162.6 cm; Wt 67.7 kg
[~2024-09-04 13:03] MED LIST changes: -DICY10CA88 PO; -SULF1TAB49 PO
[2024-09-04] MEDS: LIDOcaine 1% W/epiNEPHrine 1:100,000 20ml vial SQ ONE (14:20)
--- NOTE | 2024-09-04 14:26 | Physician Documentation ---
History of Present Illness ~ Chief Complaint: Abscess Stated Complaint: KNEE/LEG PAIN Time Seen by MD: 13:20 Primary Medical Doctor: NO PMD HPI A 44-year-old female presents to the ED for complaint of a develop an acid abscess over the last two days. She states it was a missed IV drug injection site. The abscess has developed in her right lower extremity on the medial aspect of her calf Tetanus Within 5 Years: Yes (2024) Medication Reconciliation Allergies: Coded Allergies: No Known Allergies (Unverified , 09/04/24) Scheduled Ibuprofen (Ibuprofen), 1 TAB PO Q8H Ibuprofen (Ibuprofen), 1 TAB PO Q8H Ibuprofen (Ibuprofen), 1 TAB PO Q8H Sulfamethoxazole/Trimethoprim (Septra Ds Tab), 1 TAB PO Q12H Zinc Oxide (Desitin), 1 APPLIC TOP Q6H Scheduled PRN Ondansetron 8mg ODT (Ondansetron Odt), 1 TAB PO TID PRN for nausea/vomiting Miscellaneous Medications Home Med List (No Home Medications), (Reported) Past Medical History Past Medical History: MRSA Abscess, Anxiety Past Surgical History: Alcohol Use: Abuse Drug Use: marijuana, methamphetamine Lives with: Family Lives In: Home Occupation: unemployed Review of Systems All Other Systems at this time: Reviewed and Negative ROS As stated above in the HPI, otherwise all systems are reviewed and negative. Physical Exam Vital Signs: Temperature: 98.5, Source: Oral, Heart Rate: 78, Respiratory Rate: 16, BP: 113/68, Pulse Oximetry: 100, Weight: 67.700 Oxygen Flow Rate: 0 Physical Exam General: Alert, no apparent distress. HEENT: PERRL, EOMI, no injection, moist mucous membranes. Extremities: Normal range of motion,right calf erythema medial aspect ,flucuant Neurologic: Oriented x4. Psychiatric: Normal mood and affect. Skin: Normal color, warm and dry. No edema, no ecchymosis. Procedures I & D Procedure : Anesthesia: Lidocaine w/ Epi Blade Size: 11 Prep/Supplies: dressing applied, irrigated Procedure Note notable purulent discharge. Notable non pulsatile blood discharge likely secondary to the knicking of vein at site Progress Results/Orders Results/Orders Completed Orders - BJ ESQUEDA GAS ROLLER OPERATOR Lidocaine 1% W/Epi 1:100,000 (Xylocaine (09/04/24 13:40) Vital Signs 09/04/24 13:11 Temp 98.5 Pulse 78 Resp 16 B/P (MAP) 113/68 Pulse Ox 100 O2 Flow Rate 0 Medical Decision Making Findings Abscess drain patient will be placed on antibiotics. Patient tolerated procedure well .nursing staff completed on wound care. placed on oral ABX. Differential Dx:Considerations: Include: Abscess, Bacteremia, Cellulitis, Erysipelas, Felon, Gas gangrene, Hidrademitis suppurativa, Impetigo, Lymphan gitis, Osteromyelitis, Paronychia, Septicemia, Other Departure Disposition: HOME / SELF CARE / HOMELESS Impression: Primary Impression: Abscess Discharge Instructions: Incision and Drainage Referrals: NO PRIMARY CARE PROVIDER (PCP) Prescriptions Sulfamethoxazole/Trimethoprim (Septra Ds Tab) 800 Mg/160 Mg Tablet 1 TAB PO Q12H for 10 Days, #20 TAB Prov: BJ ESQUEDA GAS ROLLER OPERATOR 09/04/24 Signature Scribe Signature: c Attestation: Scribed for Bj Esqueda Rn Or Lvn by Bj Hernandez NP . 09/04/24 14:27 BJ ESQUEDA NP Sep 04, 2024 14:26
[2024-09-04] MEDS ORDERED: SULF1TAB45 PO (14:27)
[2024-09-04 14:51] VITALS: BP 112/60; PULSE 68; RESP 16; TEMP 98.5; O2SAT 98
== END 2024-09-04 14:53 | disposition home or self-care (01) ==
LOC: ER 13:04
DX: L02.415 Cutaneous abscess of right lower limb (principal); F41.9 Anxiety disorder, unspecified; F12.90 Cannabis use, unspecified, uncomplicated; F10.10 Alcohol abuse, uncomplicated; F15.90 Other stimulant use, unspecified, uncomplicated; Z56.0 Unemployment, unspecified; Z79.899 Other long term (current) drug therapy; Y90.9 Presence of alcohol in blood, level not specified
CPT/HCPCS: 10060; 99283; A6258; A6449

== ENCOUNTER 2024-09-07 09:14 | Inpatient (IN) | payer MEDICAID ==
[~2024-09-07] VITALS: Ht 162.6 cm; Wt 68.0 kg
[~2024-09-07 09:14] MED LIST changes: +SULF1TAB45 PO
--- NOTE | 2024-09-07 09:23 | Physician Documentation ---
History of Present Illness ~ Stated Complaint: R LEG PAIN Time Seen by MD: 09:23 Primary Medical Doctor: NO PMD HPI This is a 44-year-old female who presents due to concerns for worsening of her right lower leg abscess for which she was seen 3 days ago and had an incision and drainage. She denies chills or fevers, but reports feeling overall unwell and it does endorse nausea. She reports that she is taking the prescribed antibiotic, Bactrim. Medication Reconciliation Allergies: Coded Allergies: No Known Allergies (Unverified , 09/04/24) Scheduled Ibuprofen (Ibuprofen), 1 TAB PO Q8H Ibuprofen (Ibuprofen), 1 TAB PO Q8H Ibuprofen (Ibuprofen), 1 TAB PO Q8H Sulfamethoxazole/Trimethoprim (Septra Ds Tab), 1 TAB PO Q12H Zinc Oxide (Desitin), 1 APPLIC TOP Q6H Scheduled PRN Ondansetron 8mg ODT (Ondansetron Odt), 1 TAB PO TID PRN for nausea/vomiting Miscellaneous Medications Home Med List (No Home Medications), (Reported) Past Medical History Past Medical History: MRSA Abscess, Anxiety Past Surgical History: Alcohol Use: Abuse Drug Use: marijuana, methamphetamine Lives with: Family Lives In: Home Occupation: unemployed Review of Systems ROS As stated above in the HPI, otherwise all systems are reviewed and negative. Physical Exam Physical Exam General: Alert, no apparent distress. Neck: Full range of motion. Respiratory: Lungs clear, no respiratory distress. Chest: No accessory muscle use. Cardiovascular: Regular rate and rhythm, no murmurs. Gastrointestinal: Soft, nontender, nondistended. Bowels sounds present. Extremities: Normal range of motion, no deformity. Neurologic: Oriented x4. Psychiatric: Normal mood and affect. Skin: Normal color, warm and dry. No edema, no ecchymosis. Procedures Procedures LET gel was placed to abscess area right medial calf x 30 minutes. This was then further anesthetized with 5 ml of plain 1% lidocaine to good effect. An approx 1/2 cm incision was made in the center of the firm area for release of large amounts clotted blood, purulence, and blood. This was then packed with 1/4 inch iodoform gauze and dressed with non-stick pad and avelina wrap. Patient tolerated well and reported relief after procedure. Culture sent. Progress Results/Orders Results/Orders Orders - SYLWIA SANCHEZ THERMOSTATIC CONTROLS SUPERVISOR Cult (Aer) Routine C&S+Gram St (09/07/24 09:47) Dressing Orders (09/07/24 09:47) Laceration/I&D Tray Set Up (09/07/24 09:47) Wound Care Orders (09/07/24 09:47) Culture Blood (09/07/24 09:49) Normal Saline 1000ml (0.9% Sodium Chlori (09/07/24 11:45) * Iv Access / Saline Lock * (09/07/24 11:44) Page Hospitalist (09/07/24 11:45) Vancomycin/H2o 1.75g/350ml Pb (Vancomyci (09/07/24 12:00) Completed Orders - SYLWIA SANCHEZ THERMOSTATIC CONTROLS SUPERVISOR Lidocaine/Epi/Tetracaine Top (Lidocaine/ (09/07/24 09:50) Lidocaine 1% 30ml Vial (Xylocaine 1% Via (09/07/24 09:50) Cbc/Diff (09/07/24 09:49) Procalcitonin (09/07/24 09:49) C-Reactive Protein (09/07/24 09:49) Lacticsepsis (09/07/24 09:49) Ketorolac Trometh 30mg/Ml Vial (Toradol (09/07/24 09:55) BMP (09/07/24 10:23) Ceftriaxone/B1l-Qakslfyt 1gm (Rocephin 1 (09/07/24 11:45) Vancomycin*Pharmacy To Dose* (Vancomycin (09/07/24 11:50) Medications Received in ER Medications (Trade) Dose Ordered Sig/Tan Route PRN Reason Start Time Stop Time Status Last Admin Dose Admin (Toradol inj. 30mg/ml) 30 mg ONCE ONCE IM 09/07/24 09:55 09/07/24 10:05 DC 09/07/24 10:27 30 MG Vital Signs 09/07/24 09/07/24 09:21 10:27 Temp 97.7 Pulse 68 Resp 16 16 B/P (MAP) 121/78 Pulse Ox 100 Laboratory Tests Test 09/07/24 10:15 09/07/24 10:23 White Blood Count 5.1 Red Blood Count 4.73 Hemoglobin 13.9 Hematocrit 42.7 Mean Corpuscular Volume 90.3 Mean Corpuscular Hemoglobin 29.5 Mean Corpuscular Hemoglobin Concent 32.7 L Red Cell Distribution Width 13.5 Platelet Count 358 Mean Platelet Volume 7.5 Neutrophils (%) (Auto) 63.4 Lymphocytes (%) (Auto) 25.3 Monocytes (%) (Auto) 8.5 Eosinophils (%) (Auto) 1.9 Basophils (%) (Auto) 0.9 Neutrophils # (Auto) 3.3 Lymphocytes # (Auto) 1.3 Monocytes # (Auto) 0.4 Eosinophils # (Auto) 0.1 Basophils # (Auto) 0.0 CBC Comment Lactic Acid Level 2.7 H Sodium Level 136 Potassium Level 4.6 Chloride Level 103 Carbon Dioxide Level 26.3 Anion Gap 7 L Blood Urea Nitrogen 8 Creatinine 0.78 Estimated GFR/1.73 m2 80 BUN/Creatinine Ratio 10.3 Glucose Level 90 Calcium Level 8.7 C-Reactive Protein 0.95 H Albumin 3.4 Procalcitonin < 0.05 Chemistry Comments Medical Decision Making Additional Comment Abscess drained with large return of purulence/blood. Culture obtained. Labs returned showing elevated lactic acid at 2.7, elevated CRP. Blood culture pending. Patient considered appropriate for admission to hospital due to her failure of outpatient antibiotic treatment and signs of early sepsis. Hospitalist paged. Vancomycin and ceftriaxone ordered along with 1 liter NS bolus. 1215: Hospitalist Dr. Stark agrees to admit patient. Departure Time of Disposition: 12:18 Disposition: 09 ADMITTED INPATIENT Admitted to Inpatient Unit: yes, to hospitalist Impression: Primary Impression: Abscess Additional Impression: Cellulitis Condition: Stable Referrals: NO PRIMARY CARE PROVIDER (PCP) Education Educated: Patient Educated regarding: diagnosis, treatment, prognosis, need for follow up Signature Scribe Signature: x Attestation: The note accurately reflects work and decisions made by me.Sylwia Hernandez NP 09/07/24 09:24 SYLWIA SANCHEZ NP Sep 07, 2024 09:23
[2024-09-07] MEDS ORDERED: ketorolac trometh 30MG/ML vial 30 MG/ML VIAL IV ONE (09:50)
[2024-09-07] MEDS: ketorolac trometh 30MG/ML vial 30 MG/ML VIAL IM ONE (10:27)
[2024-09-07] MEDS: LIDOcaine/epinephrine/tetracaine TOPICAL sol 3 ML syringe TOP ONE (10:29)
[2024-09-07 10:52] LABS: MEAN PLATELET VOLUME 7.5 FL (7.4-10.4); RED CELL DISTRIBUTION WIDTH 13.5 % (11.5-14.5)
[2024-09-07] MEDS: LIDOcaine 1% 30ml preserv. free vial IJ ONE (10:56)
[2024-09-07 11:27] LABS: CREATININE 0.78 MG/DL (0.40-0.90); TOTAL CARBON DIOXIDE 26.3 MMOL/L (24-32); eCRCL 78 ML/MIN; eGFR 80 ML/MIN
[2024-09-07] MEDS ORDERED: VANCOMYCIN 1.75GM/WATER FOR INJ (PEG) 350 ML IVPB IV ONE (12:00)
[2024-09-07] MEDS ORDERED: magnesium Cl slow-release 64mg tablet PO PRN (12:20)
[2024-09-07] MEDS ORDERED: potassium Cl 40MEQ/1/2NS 520ml 520 ML IV PRN (12:20)
[2024-09-07] MEDS ORDERED: HYDROcodone/acetaminophen 10/325mg tab PO PRN (12:20)
[2024-09-07] MEDS ORDERED: magnesium sulf-water 4G/100mL 100 ML IV PRN (12:20)
[2024-09-07] MEDS ORDERED: magnesium sulf-water 2g/50mL 50 ML IV PRN (12:20)
[2024-09-07] MEDS ORDERED: potassium Cl 20 mEq SR tablet PO PRN ×2 (12:20)
[2024-09-07] MEDS ORDERED: magnesium hydroxide 30ml (MOM) UD suspension PO PRN (12:20)
[2024-09-07] MEDS ORDERED: ondansetron/PF 4mg/2ml inj IV PRN (12:20)
[2024-09-07] MEDS ORDERED: mag hydrox/Alum hydrox/simeth 30ml oral suspension PO PRN (12:20)
[2024-09-07] MEDS: PERFLUTREN PROTEIN-A MICROSPHR (Optison) 0.22 MG/ML 3ML VIAL IV ONE (12:20)
[2024-09-07] MEDS: normal saline 1000ml 1,000 ML IV ONE (13:06)
[2024-09-07] MEDS: CefTRIAXone/D5W-Rocephin 1gm 50 ML IV ONE (13:06)
[2024-09-07] MEDS: normal saline 1000ml 1,000 ML IV SCH (16:03)
[2024-09-07] MEDS: VANCOMYCIN 1.75GM/WATER FOR INJ (PEG) 350 ML IVPB IV ONE (16:08)
[2024-09-07 16:33] VITALS: BP 124/68; PULSE 71; RESP 16; TEMP 98.3; O2SAT 100
--- NOTE | 2024-09-07 19:05 | CARDIOLOGY REPORT ---
APPROVED REPORT EXAM: Comprehensive 2D, Doppler, and color-flow Echocardiogram. Patient Location: ER 10 Blood Pressure: 100/70 mmHg Heart Rate: 61 bpm Rhythm: SINUS Indications EVALUATE FOR SUBACUTE BACTERIAL ENDOCARDITIS R. LEG ABSCESS Linux Server Engineer: none Previous echo: none 2D Dimensions RVDd 3.1 cm LA Diam5.3 cm IVSd 0.9 (0.7-1.1cm) LVDd 4.5 cm PWd 0.8 (0.7-1.1cm) IVSs 1.1 (0.8-1.2cm) LVDs 2.6 (2.5-4.0cm) PWs 1.1 (0.8-1.2cm) LVOT Diameter 1.94 (1.8-2.4cm) LVEF(%) 74.0 (>50%) Ao Asc Diam.3.61 cmFS (%) 42.8 % SV 68.3 ml CO 4.2 L/min M-Mode Dimensions Left Atrium(MM) 2.61 (2.5-4.0cm) Aortic Root 2.51 (2.2-3.7cm) Aortic Cusp Exc 1.89 (1.5-2.0cm) MV EPSS 0.9 (<0.5cm) Biplane 2D LA Volumes LA ESV Index 18.72 mL/m2 Aortic Valve AoV Peak Jhonatan. 152.9 cm/s AoV VTI 29.2 cm AO Peak GR. 9.4 mmHg AO Mean GR. 6 mmHg LVOT VTI 24.56 cm LVOT Peak Jhonatan. 112.9 cm/s MOHSEN(VTI)/BSA 2.50 cm2/m2 MOHSEN (VTI) 2.50 cm2 Mitral Valve MV E Velocity 61.3 cm/s MV Peak Gr. 3 mmHg MV DECEL TIME 240 ms MV A Velocity 88.4 cm/s MV PHT 56 ms E/A Ratio 0.7 MVA (PHT) 3.93 cm2 MV VMax92.9 cm/s TDI Medial E' P. V 9.22 cm/s E/Medial E' 6.6 Pulmonary Vein S1 Velocity 56.5 cm/s D2 Velocity 44.1 cm/s PVa Wnahxrrt17.5 cm/s PVa [id number] msec LEFT VENTRICLE Normal LV size and wall thickness. Overall systolic function is normal. LVEF is 65-70%. RIGHT VENTRICLE RV is normal size and function. ATRIA LA size is normal. AORTIC VALVE Trileaflet AV appears mildly sclerotic without stenosis. Trace insufficiency. MITRAL VALVE Mild MV annular calcification without stenosis. Trace regurgitation. TRICUSPID VALVE TV appears structurally normal with trace regurgitation. PULMONIC VALVE Normal PV without stenosis, physiologic insufficiency. GREAT VESSELS The aortic root is normal in size. The ascending aorta is normal in size. PERICARDIUM Normal pericardium. No effusion. Other Information Study Quality: Adequate Conclusion Normal LV size and wall thickness. Overall systolic function is normal. LVEF is 65-70%. RV is normal size and function. LA size is normal. Trileaflet AV appears mildly sclerotic without stenosis. Trace insufficiency. Mild MV annular calcification without stenosis. Trace regurgitation. TV appears structurally normal with trace regurgitation. Normal pericardium. No effusion.
[2024-09-07] MEDS: piperacillin/tazo 4.5gm/100ml 100 ML IV SCH (19:59)
[2024-09-07] MEDS: K and/or MAG REPLACEMENT MC SCH (20:00)
--- NOTE | 2024-09-07 20:00 | HISTORY AND PHYSICAL ---
History & Physical Providers to CC ~ History of Present Illness Reason for Admit\Complaint: Right lower extremity abscess History of Present Illness This is a 44-year-old female who has a five day history of an abscess in her right lower extremity medial aspect of her calf. She had been skin popping methamphetamines since she no longer has any venous access went to the ED on the 01 06 and had a bedside I and D and was prescribed Bactrim however in the ED today since the abscesses worsening- Jaylin Calderon ED ASSISTANT PROFESSOR OF PSYCHOLOGY performed a bedside I and D and was able to release a large amount of serosanguineous fluid and the area was packed. I started the patient on IV vancomycin IV Zosyn. Echocardiogram was obtained that was no vegetations seen on the preliminary report. The patient is admitted to surgical floor Allergies: Coded Allergies: No Known Allergies (Unverified , 09/04/24) Home Medications Home Medications Active Septra Ds Tab (Trimethoprim/Sulfamethoxazole) 800 Mg/160 Mg Tablet 1 Tab PO Q12H 10 Days Desitin (Zinc Oxide) 13 % Cream..g. 1 Applic TOP Q6H 30 Days Ondansetron Odt (Ondansetron HCl) 8 Mg Tab.rapdis 1 Tab PO TID PRN 5 Days Ibuprofen 800 Mg Tablet 1 Tab PO Q8H 10 Days Ibuprofen 800 Mg Tablet 1 Tab PO Q8H 10 Days Ibuprofen 800 Mg Tablet 1 Tab PO Q8H 30 Days Reported No Home Medications (Home Med List) Each Past Medical History Past Medical History MRSA abscess, bipolar disorder, PTSD Past Surgical History Surgical History Comment Family History Family History: FH: diabetes mellitus FATHER Maternal grandmother Past Social History Social History Comment Vapes nicotine equal to a proximally half a pack of cigarettes daily, drinks 4-5 tall cans of beer daily, IV methamphetamine use previously smoked marijuana. Full code status ROS ROS Except for positives in the HPI the rest of the 14 point review systems is negative Exam Vitals: Vital Signs Date Time Temp Pulse Resp B/P (MAP) Pulse Ox O2 Delivery O2 Flow Rate FiO2 09/07/24 16:33 98.3 71 16 124/68 (86) 100 Room Air 09/07/24 15:12 0 General: Gen. No acute distress alert and oriented 4 Lungs clear to ascultation bilaterally, no wheezes rales or rhonchi appreciated Heart normal sinus rhythm no murmurs rubs or clicks noted Abdomen soft nontender bowel sounds are normoactive Lower extremities no clubbing cyanosis, nor edema appreciated bilaterally Skin right medial calf approximatly 7 x 10 cm fluctuant region Diagnostic Data Last Recorded Lab Results: 09/07/24 1015 09/07/24 1023 Problems: (1) Abscess Status: Acute Assessment & Plan: # right calf abscess- bedside I and D was done in the ED Wound care consult Wound Culture was sent from the ED IV Zosyn IV vancomycin # IV methamphetamine use disorder Substance use navigator Idalmis Horne consult is ordered The patient informs me she is going to [facility] Echocardiogram was negative for any valvular vegetations suggestive of endocarditis. # tobacco use disorder Nicotine patch I will speak with the patient about smoking cessation tomorrow I spent a total of 17 minutes on reviewing various resuscitative measures/ ACP with the patient at the time of admission. The patient has decided on full code status Date of Service: Sep 07, 2024 Billing Provider: BRINDA HOOKS DO Common Visit Codes: 46775-[id number] INP/OBS CARE (HIGH) Secondary Visit Codes: 61831-FTHHNICE CARE PLAN 30 MINUTES BRINDA HOOKS DO Sep 07, 2024 20:00
[2024-09-07 22:00] VITALS: BP 106/74; PULSE 72; RESP 16; TEMP 98.2; O2SAT 99
[2024-09-07] MEDS: docusate sod 100mg capsule PO SCH (22:00)
[2024-09-07] MEDS: enoxaparin 40mg/0.4ml syringe SQ SCH (22:01)
[2024-09-07] MEDS: nicotine 14mg patch - 24hr TD SCH (22:02)
[2024-09-07] MEDS: HYDROcodone/acetaminophen 5mg/325mg tablet PO PRN (23:29)
[2024-09-08] MEDS: vancomycin/NS 1 GM ADD-VANTAGE 250 ML IV SCH (04:12)
[2024-09-08] MEDS: piperacillin/tazo 4.5gm/100ml 100 ML IV SCH (05:30)
[2024-09-08 05:34] LABS: MEAN PLATELET VOLUME 7.7 FL (7.4-10.4); RED CELL DISTRIBUTION WIDTH 13.5 % (11.5-14.5)
[2024-09-08 05:59] LABS: CREATININE 0.68 MG/DL (0.40-0.90); TOTAL CARBON DIOXIDE 23.9 MMOL/L (24-32); eCRCL 89 ML/MIN; eGFR > 90 ML/MIN
[2024-09-08 06:00] VITALS: BP 113/69; PULSE 67; RESP 14; TEMP 97.9; O2SAT 99
[2024-09-08 11:00] VITALS: BP 83/53; PULSE 68; RESP 18; TEMP 98.7; O2SAT 99
[2024-09-08 12:00] VITALS: BP 98/64; PULSE 61
[2024-09-08 18:00] VITALS: BP 101/61; PULSE 65; RESP 15; TEMP 97.9; O2SAT 100
--- NOTE | 2024-09-08 18:52 | PROGRESS NOTE ---
Daily Progress Note Providers to CC ~ Antibiotic Timeout Antibiotic Ordered?: Yes Subjective The patient has no acute complaints wound care came in pack the patient's wound. The patient remains afebrile and has a normal white blood cell count Objective Vital Signs Date Time Temp Pulse Resp B/P (MAP) Pulse Ox O2 Delivery O2 Flow Rate FiO2 09/08/24 14:57 16 09/08/24 12:00 61 98/64 (75) 09/08/24 11:00 98.7 99 Room Air 09/08/24 08:00 0.0 Result Diagram: 09/08/2442309/08/24423 Gen. No acute distress alert and oriented 4 Lungs clear to ascultation bilaterally, no wheezes rales or rhonchi appreciated Heart normal sinus rhythm no murmurs rubs or clicks noted Abdomen soft nontender bowel sounds are normoactive Lower extremities no clubbing cyanosis, nor edema appreciated bilaterally Skin dressing is in place in the right lower extremity Problem\Assessment\Plan Problems/Diagnosis: (1) Abscess # right calf abscess- bedside I and D was done in the ED Wound care consult Wound Culture was sent from the ED IV Zosyn IV vancomycin # IV methamphetamine use disorder Substance use navigator Idalmis Horne consult occurred today 09/08 The patient informs me she is going to [facility] Echocardiogram was negative for any valvular vegetations suggestive of endocarditis. # tobacco use disorder Nicotine patch Disposition: Anticipate discharge in the a.m. with home health Date of Service: Sep 08, 2024 Billing Provider: BRINDA HOOKS DO Common Visit Codes: [id number] INP/OBS CARE(MOD) BRINDA HOOKS DO Sep 08, 2024 18:52
[2024-09-08 20:20] VITALS: RESP 16
[2024-09-08 22:00] VITALS: BP 111/76; PULSE 63; RESP 16; TEMP 98; O2SAT 100
[2024-09-09 03:58] LABS: MEAN PLATELET VOLUME 7.4 FL (7.4-10.4); RED CELL DISTRIBUTION WIDTH 13.3 % (11.5-14.5)
[2024-09-09] MEDS: VANCOMYCIN LEVEL IV ONE (04:06)
[2024-09-09 04:17] LABS: CREATININE 0.75 MG/DL (0.40-0.90); TOTAL CARBON DIOXIDE 25.6 MMOL/L (24-32); eCRCL 81 ML/MIN; eGFR 83 ML/MIN
[2024-09-09 06:00] VITALS: BP 120/73; PULSE 60; RESP 14; TEMP 98.3; O2SAT 99
[2024-09-09 08:00] VITALS: RESP 14; O2SAT 99
[2024-09-09 11:00] VITALS: BP 103/58; PULSE 73; RESP 19; TEMP 98.4; O2SAT 98
[2024-09-09] MEDS ORDERED: LEVO750T68 PO (13:56)
[2024-09-09] MEDS ORDERED: VANCOmycin 1250MG/NS 250ml Bag 250 ML IV SCH (16:00)
[2024-09-09] MEDS ORDERED: JUVEN Shake w/Arg/Glut/Ca2+Bmb (Juven 19.3gm) pkt 240ml PO SCH (17:30)
--- NOTE | 2024-09-09 19:36 | DISCHARGE SUMMARY ---
Discharge Summary Providers to CC ~ Discharge Summary Admission Diagnosis: Right leg [facility] Course DATE OF ADMISSION: 09/07/2024 DATE OF DISCHARGE: 09/09/2024 Discharge Diagnosis\Comment: Right calf abscess, IV methamphetamine use disorderm tobacco use disorder Operations\Procedures: None Consultants: None Complications: None Condition on DC: Stable New Medications: Levofloxacin (Levofloxacin) 750 Mg Tablet 750 MG PO DAILY, #7 TAB Continued Medications: Ibuprofen (Ibuprofen) 800 Mg Tablet 1 TAB PO Q8H for 30 Days, #90 TAB Discontinued Medications: Home Med List (No Home Medications) Each Discharge Summary: I admitted Mrs. Oconnell with the following HPI:This is a 44-year-old female who has a five day history of an abscess in her right lower extremity medial aspect of her calf. She had been skin popping methamphetamines since she no longer has any venous access went to the ED on the 01 06 and had a bedside I and D and was prescribed Bactrim however in the ED today since the abscesses worsening- Jaylin Kvng ED TIP CUTTER performed a bedside I and D and was able to release a large amount of serosanguineous fluid and the area was packed. I started the patient on IV vancomycin IV Zosyn. Echocardiogram was obtained that was no vegetations seen on the preliminary report. The patient is admitted to surgical floor. Wound care nurse evaluated the patient in the area was packed- wound culture grew out MSSA sensitive to all antibiotics other than Bactrim and levofloxacin has a good mi C the patient was discharged with a prescription for levofloxacin 750 mg daily for seven days the patient will also have a follow up appointment arranged for outpatient wound care clinic Substance use navigator Idalmis Horne consulted on the patient and gave the patient resources however the patient is [facility]. Gen. No acute distress alert and oriented 4 Lungs clear to ascultation bilaterally, no wheezes rales or rhonchi appreciated Heart normal sinus rhythm no murmurs rubs or clicks noted Abdomen soft nontender bowel sounds are normoactive Lower extremities no clubbing cyanosis, nor edema appreciated bilaterally Skin dressing is in place in the right lower extremity The patient felt ready to be discharged and was medically cleared to be discharged on 09/09/2024 The patient was seen and evaluated on day of discharge. Time spent on discharge 33 minutes *Problems/Diagnosis: (1) Abscess Status: Acute Total Time Spent on D/C: > 30 Minutes Date of Service: Sep 09, 2024 Billing Provider: BRINDA HOOKS DO Common Visit Codes: 69420-TZD/OBS DISCH DAY >30min BRINDA HOOKS DO Sep 09, 2024 19:36
[2024-09-11] MEDS ORDERED: VANCOMYCIN LEVEL IV ONE (03:30)
== END 2024-09-09 16:14 | disposition home or self-care (01) | DRG 383 ==
LOC: ER 09:15 → ED HOLD 12:23 → SUR 3N 15:38
PROVIDERS: ADMIT Family Medicine; ATTEND Family Medicine
PROC: 0Y9H3ZZ Drainage of Right Lower Leg, Percutaneous Approach (ICD-10-PCS; principal; 2024-09-07)
DX: L03.115 Cellulitis of right lower limb (principal); B95.61 Methicillin susceptible Staphylococcus aureus infection as the cause of diseases classified elsewhere; F17.200 Nicotine dependence, unspecified, uncomplicated; F41.9 Anxiety disorder, unspecified; L02.415 Cutaneous abscess of right lower limb; F43.10 Post-traumatic stress disorder, unspecified; F15.10 Other stimulant abuse, uncomplicated; F31.9 Bipolar disorder, unspecified; Z98.891 History of uterine scar from previous surgery
CPT/HCPCS: 10060; 36415; 80048; 80053; 80202; 83605; 83735; 84145; 85025; 86140; 87040; 87070; 87077; 87081; 87186; 93306; 96372; 99285; A6258; A6266; A6449; G0378; J0696; J1650; J1885; J2543; J3373; J3375; J7030

== ENCOUNTER 2024-10-09 19:07 | Emergency (ER) | payer MEDICAID ==
[~2024-10-09] VITALS: Ht 162.6 cm; Wt 59.5 kg
[~2024-10-09 19:07] MED LIST changes: +LEVO750T68 PO; -NO HOME MEDS; -ONDA-245 PO; -SULF1TAB45 PO; -ZINC57OI3 TOP
--- NOTE | 2024-10-09 19:57 | Physician Documentation ---
History of Present Illness ~ Chief Complaint: Finger pain Stated Complaint: FINGER PAIN Time Seen by MD: 19:34 Primary Medical Doctor: NO PMD HPI Patient is a 44-year-old female that presents to the emergency department for evaluation of her right index finger. Patient reports that he she has a sliver or splinter in that right index finger that she has had for 4 days. Patient reports that the sliver respond to his from a [place] and not man-made products with any type of chemical or coating. Patient reports she attempted to remove the sliver or splint or herself and has been unable to at this point. She reports mild pain and edema associated with the silver. No fevers or any other constitutional symptoms at this time. Tetanus within 5 years: Yes (2024) Medication Reconciliation Allergies: Coded Allergies: No Known Allergies (Unverified , 10/09/24) Scheduled Ibuprofen (Ibuprofen), 1 TAB PO Q8H Levofloxacin (Levofloxacin), 750 MG PO DAILY Past Medical History Past Medical History: MRSA Abscess, Anxiety Past Surgical History: Patient History: FH: diabetes mellitus FATHER Maternal grandmother Alcohol Use: Abuse Drug Use: marijuana, methamphetamine Lives with: Family Lives In: Home Occupation: unemployed Review of Systems ROS As stated above in the HPI, otherwise all systems are reviewed and negative. Physical Exam Vital Signs: Temperature: 96.3, Heart Rate: 89, Respiratory Rate: 15, BP: 127/78, Pulse Oximetry: 98, Weight: 59.550 Physical Exam VITALS: Reviewed and as above. GENERAL: Alert, no apparent distress. HEENT: Normocephalic, atraumatic, PERRL, EOMI, dry mucosa, no erythema RESPIRATORY: Lungs clear, normal breath sounds, no respiratory distress. CHEST: No accessory muscle use, no retractions CV: Regular rate, rhythm, no edema, no murmur, No: JVD GI: Soft, non-tender, bowels sounds present, no rebound, guarding, or rigidity BACK: No CVA tenderness, or swelling MUSCULOSKELETAL No deformities, mild edema noted to the right index finger. SKIN: Warm and dry, no rash, mild erythema and swelling noted to the right index finger. NEURO: Oriented x4, No motor or sensory deficit PSYCH: Normal mood and affect, no agitation Procedures I&D Procedure : Site: Right index finger Anesthesia: none Prep/Supplies: betadine prep, dressing applied, irrigated Incision: pus drained Tolerated Procedure Well?: yes, no complications Progress Results/Orders Results/Orders Orders - KATHI BOYD CLERK SPECIALIST General Nursing Order (10/09/24 20:14) Vital Signs 10/09/24 10/09/24 19:13 20:59 Temp 96.3 Pulse 89 90 Resp 15 16 B/P (MAP) 127/78 122/82 (95) Pulse Ox 98 98 O2 Flow Rate 0 Medical Decision Making Findings This patient presents with a painful fluid pocket with fluctuance and surrounding induration and erythema, concerning for an abscess of her right index finger secondary to a splinter. The abscess opened and purulence was expr essed. There is no lymphangitic spread visible. Low concern for osteomyelitis. Patient is not immunocompromised, and there is no bullae, pain out of proportion, or rapid progression concerning for necrotizing fasciitis. Patient to be discharged home with keflex with follow up with their PMD. He will return to the emergency department with any worsening or recurrent symptoms or any additional concerning symptoms that we discussed here today i.e. fever chills nausea vomiting increased swelling increased erythema inability to bend finger numbness tingling in the affected digit or any other concerning symptoms. Tylenol ibuprofen as needed for discomfort. . Please take your antibiotic as prescribed. General Diff Dx:Considerations: Include: Abrasion, Contusion, Fracture, Hematoma, Laceration, Malunion, Neurovascular injury, Open fracture, Sprain, Ulcer, Other Finger Diff Dx:Considerations: Include: Abrasion, Cellulitis, Contusion, Dislocation, Fracture, Hematoma, Laceration, Neurovascular injury, Open fracture, Subungual hematoma, Other Departure Disposition: 01 HOME / SELF CARE / HOMELESS Impression: Primary Impression: Abscess Additional Impressions: Swelling Erythema Condition: Stable Discharge Instructions: Abscess/Boil Additional Instructions: This patient presents with a painful fluid pocket with fluctuance and surrounding induration and erythema, concerning for an abscess of her right index finger secondary to a splinter. The abscess opened and purulence was expressed. There is no lymphangitic spread visible. Low concern for osteomyelitis. Patient is not immunocompromised, and there is no bullae, pain out of proportion, or rapid progression concerning for necrotizing fasciitis. Patient to be discharged home with keflex with follow up with their PMD. He will return to the emergency department with any worsening or recurrent symptoms or any additional concerning symptoms that we discussed here today i.e. fever chills nausea vomiting increased swelling increased erythema inability to bend finger numbness tingling in the affected digit or any other concerning symptoms. Tylenol ibuprofen as needed for discomfort. . Please take your antibiotic as prescribed. Referrals: NO PRIMARY CARE PROVIDER (PCP) Prescriptions Cephalexin*Monohydrate* (Keflex*) 500 Mg Capsule 1 CAP PO QID for 7 Days, #28 CAP Prov: KATHI BOYD 10/09/24 Education Educated: Patient Educated regarding: diagnosis, treatment, need for follow up Signature Scribe Signature: A Attestation: Scribed for Kathi Boyd by TEX Oneill . 10/09/24 21:11 KATHI BOYD Oct 09, 2024 19:57
[2024-10-09 20:59] VITALS: BP 122/82; PULSE 90; RESP 16; O2SAT 98
[2024-10-09] MEDS ORDERED: CEPH-585 PO (21:10)
[2024-10-09 21:20] VITALS: TEMP 97.6
== END 2024-10-09 21:21 | disposition home or self-care (01) ==
LOC: ER 19:08
DX: L02.511 Cutaneous abscess of right hand (principal); F12.90 Cannabis use, unspecified, uncomplicated; F15.90 Other stimulant use, unspecified, uncomplicated
CPT/HCPCS: 26010; 99283

== ENCOUNTER 2025-01-02 20:33 | Emergency (ER) | payer MEDICAID ==
[~2025-01-02] VITALS: Ht 162.6 cm; Wt 53.0 kg
[2025-01-02 20:38] VITALS: BP 117/84; PULSE 98; RESP 15; TEMP 96.3; O2SAT 99
--- NOTE | 2025-01-02 21:46 | RADIOLOGY REPORT ---
EXAM: DI CHEST,SINGLE VIEW TECHNIQUE: Single frontal chest radiograph CLINICAL HISTORY: SEPSIS COMPARISON: DI CHEST,SINGLE VIEW on DOS: 03/15/23, CHEST,TWO VIEWS on DOS: 04/21/18 FINDINGS/IMPRESSION: The lungs are clear. The cardiomediastinal silhouette is unremarkable. No pleural effusion or pneumothorax. No acute osseous abnormality. Chronic appearing right posterior rib fracture deformity.
[2025-01-02 22:48] LABS: MEAN PLATELET VOLUME 7.3 FL (7.4-10.4); RED CELL DISTRIBUTION WIDTH 12.8 % (11.5-14.5)
[2025-01-02 23:05] LABS: CREATININE 0.71 MG/DL (0.40-0.90); TOTAL CARBON DIOXIDE 25.9 MMOL/L (24-32); eCRCL 83 ML/MIN; eGFR 89 ML/MIN
--- NOTE | 2025-01-03 00:58 | Physician Documentation ---
History of Present Illness ~ Chief Complaint: See Chief Complaint Stated Complaint: HEAD PAIN Primary Medical Doctor: NO PMD HPI This is a 44-year-old female who presents reporting several days of painful lumps on her head she describes as abscesses, as well as irritation to her breast. Patient reports no fever, chills, other systemic symptoms. Tetanus Within 5 Years: Yes (2024) Medication Reconciliation Allergies: Coded Allergies: No Known Allergies (Unverified , 01/02/25) Scheduled Ibuprofen (Ibuprofen), 1 TAB PO Q8H Levofloxacin (Levofloxacin), 750 MG PO DAILY Past Medical History Past Medical History: MRSA Abscess, Anxiety Past Surgical History: Patient History: FH: diabetes mellitus FATHER Maternal grandmother Smoking Status: Unknown if ever smoked Alcohol Use: Abuse Drug Use: marijuana, methamphetamine Lives with: Family Lives In: Home Occupation: unemployed Review of Systems ROS As stated above in the HPI, otherwise all systems are reviewed and negative. Physical Exam Vital Signs: Temperature: 96.3, Source: Temporal, Heart Rate: 98, Respiratory Rate: 15, BP: 117/84, Pulse Oximetry: 99, Weight: 53.000 Physical Exam VITALS: Reviewed and as above. GENERAL: Alert, nontoxic appearing, no apparent distress. HEENT: Several small erythematous pustules in scalp RESPIRATORY: No increased work of breathing, no respiratory distress, speaking in full clear sentences Progress Results/Orders Results/Orders Vital Signs 01/02/25 20:38 Temp 96.3 Pulse 98 Resp 15 B/P (MAP) 117/84 Pulse Ox 99 Laboratory Tests Test 01/02/25 22:38 White Blood Count 6.1 Red Blood Count 4.62 Hemoglobin 13.9 Hematocrit 42.1 Mean Corpuscular Volume 91.2 Mean Corpuscular Hemoglobin 30.2 Mean Corpuscular Hemoglobin Concent 33.1 Red Cell Distribution Width 12.8 Platelet Count 329 Mean Platelet Volume 7.3 L Neutrophils (%) (Auto) 53.1 Lymphocytes (%) (Auto) 37.8 Monocytes (%) (Auto) 5.8 Eosinophils (%) (Auto) 2.3 Basophils (%) (Auto) 1.0 Neutrophils # (Auto) 3.3 Lymphocytes # (Auto) 2.3 Monocytes # (Auto) 0.4 Eosinophils # (Auto) 0.1 Basophils # (Auto) 0.1 CBC Comment Sodium Level 143 Potassium Level 4.1 Chloride Level 108 H Carbon Dioxide Level 25.9 Anion Gap 9 Blood Urea Nitrogen 12 Creatinine 0.71 Estimated GFR/1.73 m2 89 BUN/Creatinine Ratio 16.9 Glucose Level 113 H Lactic Acid Level 1.2 Calcium Level 8.5 Albumin 3.8 Procalcitonin < 0.05 Chemistry Comments Microbiology Date/Time Source Procedure Growth Status 01/02/25 22:38 Blood Hand Left Blood Culture - Preliminary NEGATIVE (LESS THAN 24 HOURS) Resulted Medical Decision Making Additional information obtaine: N/A Findings MSE performed in triage and patient returned to ED lobby by nursing staff to await available ED room. Pustules to head appeared to be very small furuncles without evidence of complication, evaluation of patient's concern for irritation and redness to her breast deferred until patient placed in room. Patient appears to have eloped from lobby. Differential Dx:Considerations: Include: Abscess, Bacteremia, Cellulitis, Erysipelas, Gas gangrene, Hidrademitis suppurativa, Impetigo, Lymphangitis, Osteromyelitis, Septicemia Departure Disposition: 07 LEFT AWOL/ELOPED Impression: Primary Impression: Furuncle of scalp Referrals: NO PRIMARY CARE PROVIDER (PCP) Signature Scribe Signature: No scribe Attestation: The note accurately reflects work and decisions made by me.TEX Marshall 01/03/25 00:58 MARSHAL INGRAM Jan 03, 2025 00:58
[2025-01-03] MEDS ORDERED: SULF1TAB49 PO (19:07)
[2025-01-03] MEDS ORDERED: CEPH-585 PO (19:07)
== END 2025-01-03 01:00 | disposition left against medical advice (07) ==
LOC: ER 20:33
DX: L02.821 Furuncle of head [any part, except face] (principal); F41.9 Anxiety disorder, unspecified; F15.90 Other stimulant use, unspecified, uncomplicated; F12.90 Cannabis use, unspecified, uncomplicated; Z86.14 Personal history of Methicillin resistant Staphylococcus aureus infection; Z79.899 Other long term (current) drug therapy; Z56.0 Unemployment, unspecified; Z98.890 Other specified postprocedural states
CPT/HCPCS: 36415; 71045; 80048; 83605; 84145; 85025; 87040; 99284

== ENCOUNTER 2025-01-03 18:13 | Emergency (ER) | payer MEDICAID ==
[~2025-01-03] VITALS: Ht 162.6 cm; Wt 70.0 kg
[2025-01-03 18:16] VITALS: BP 121/79; PULSE 98; RESP 16; O2SAT 100
--- NOTE | 2025-01-03 18:30 | Physician Documentation ---
History of Present Illness General Chief Complaint: Abscess Stated Complaint: SEE CHIEF COMPLAINT Time Seen by MD: 18:23 Primary Medical Doctor: NO PMD History of Present Illness Initial Comments This is a 44-year-old female who was presented to our emergency department yesterday and a who left without being seen by a physician, returns with a complaint of painful lesions on her scalp. The has been present for several weeks an are getting worse. She attempted to squeeze a Mt but nothing happened. She did not receive any medicine for it. This has not happened in the past. She does not know how they appeared. Incidentally yesterday she reported to nursing staff that she has a lesion on the underside of her breast that is very painful and swollen. She states that it has been there for about a month and is also getting worse. She has not seen a physician about it. She states that has been many years since her last mammogram. This lady denies any fever or chills, chest pain or difficulty breathing. She would not answer social questions Medication Reconciliation Allergies: Coded Allergies: No Known Allergies (Unverified , 01/03/25) Scheduled Ibuprofen (Ibuprofen), 1 TAB PO Q8H Discontinued Medications Levofloxacin (Levofloxacin), 750 MG PO DAILY Discontinued Reason: completed med therapy Past Medical History Past Medical History: MRSA Abscess, Anxiety Past Surgical History: Alcohol Use: Abuse Drug Use: marijuana, methamphetamine Lives with: Family Lives In: Home Occupation: unemployed Review of Systems ROS 10 point review of systems was performed and unless noted above in HPI is negative for acute process/complaint. Physical Exam Physical Exam Vital Signs: Temperature: 97.6, Source: Temporal, Heart Rate: 98, Respiratory Rate: 16, BP: 121/79, Pulse Oximetry: 100, Weight: 70.000 Physical Exam Physical examination: GENERAL: Awake, alert, oriented, GCS 15, no apparent distress, non-toxic appearing, answers questions, follows commands appropriately. Examined in [facility], placed in bed 18. HEENT: Atraumatic, normocephalic, scalp was examined. There are two areas of a proximally 1.5 cm in diameter around the erythematous with a calor and central umbilication but no significant fluctuance concerning for early abscesses. No crepitus, no violaceous changes. They are located on the left parietal area and right occipital. pupils equal, extraocular muscles intact Active gross movements, sclerae anicteric, mucus membranes moist, no stridor. NECK: Midline, no JVD CARDIOVASCULAR: Good skin perfusion without evidence of pallor, mottling. PULMONARY: Nonlabored, symmetric chest rise, no audible wheezing, no accessory muscle use, no respiratory distress, speaking in full sentences. GASTROINTESTINAL: Not distended. NEUROLOGIC: Lucid with normal mental status. Normal facial symmetry. Moves all extremities symmetrically and with purpose. No truncal ataxia. Speech is fluid without evidence of dysarthria or aphasia, no focal deficits appreciated. EXTREMITIES: Acute deformities Skin: warm, dry PSYCHIATRIC: Normal affect, normal insight, normal concentration. Focused exam: [Left breast was examined in the presence of THOR Mitchell as a roll finisher. There is significant area of erythema, calor in the inframammary f old, there is induration between four and 6:00 a.m. on the breast approach in the nipple. The nipple itself is inverted. There was no bleeding or purulent discharge from the nipple. Due to tenderness to palpation, not able to perform appropriate breast examination for masses.] Progress Results/Orders Results/Orders Completed Orders - LANDRY CABELLO DO Fluconazole Tablet (Diflucan Tablet) (01/03/25 18:25) Sulfamethox/Trimetho. Ds Tab (Septra Ds (01/03/25 18:25) Cephalexin Capsule (Keflex Capsule) (01/03/25 18:25) Medications Received in ER Medications (Trade) Dose Ordered Sig/Tan Route PRN Reason Start Time Stop Time Status Last Admin Dose Admin (Diflucan tablet) 150 mg ONCE ONCE PO 01/03/25 18:25 01/03/25 18:30 DC 01/03/25 18:37 150 MG (Septra DS tab) 1 tab ONCE ONCE PO 01/03/25 18:25 01/03/25 18:30 DC 01/03/25 18:37 1 TAB (Keflex capsule) 500 mg ONCE ONCE PO 01/03/25 18:25 01/03/25 18:30 DC 01/03/25 18:37 500 MG Vital Signs 01/03/25 18:16 Temp 97.6 Pulse 98 Resp 16 B/P (MAP) 121/79 Pulse Ox 100 Medical Decision Making Additional information obtaine: old records Findings Facility Status: ED Holds, RME process The plan was discussed with the patient, who demonstrates clear understanding of the plan and is in agreement with the plan unless otherwise noted in the chart. All questions have been answered, all concerns were addressed unless otherwise documented. I was available throughout their ED stay for frequent reassessment and questions. Differential Diagnoses (considered and possible or likely): [Scalp cellulitis, scalp abscess, unlikely to be necrotizing infection, unlikely osteomyelitis of t he skull. With respect to the breast, most likely mastitis, less likely but had to be considerably breast neoplasm, fungal infection had also been considered.] ??Differential Diagnoses (considered and unlikely, not requiring evaluation currently): [See above] MDM Data Please see HPI for the following: Independent Historians and external Records Review. Historian: [Patient] Independent Historians: ?[Record review] Records reviewed. The patient has been seen yesterday and received laboratory workup. On 01/02/2025, her white count was 6.1, hemoglobin was normal at 13.9, platelets were normal at 329. There was only 53% neutrophils. Her metabolic panel showed normal renal function, no electrolyte derangement. Lactic acid was normal yesterday at 1.2. Procalcitonin was normal as well. Medication Management: [Reviewed medication list] Social History and determinants: [Reviewed] Please see the body of the note for the following: Any independent interpretations of ECG, imaging studies. All vitals signs/haemodynamics, ordered tests were independently reviewed and interpreted by myself. Nursing triage complaint and vitals reviewed, additional nursing notes were reviewed as available and I agree unless otherwise noted or documented in contradiction in the chart Vital Signs: Independently reviewed Labs: Independently interpreted Imaging: Independently interpreted Old Medical Records: Independently reviewed, see HPI for relevant summary and information Pulse Oximetry: [100%] interpreted as [normal on room air] by me Additionally notably showing: [Hemodynamically stable] Tests considered but not ordered include: [Hematologic workup and imaging has been considered but does not appear to be necessary given clinical nature of diagnosis] Social Determinants of Health Impact: Patient was evaluated in [facility] [place] to healthcare due to below par ratio of patient to medical providers. [] Comorbid Conditions Impacting Present Evaluation and Care/Treatment: [None Reported with the patient] Management Discussions with other Healthcare Providers: [None] Treatment and Disposition Medication Management (Given or considered): [Antibiotics/antifungal]. See EMR for details Consideration for Hospitalization/Escalation/Deescalation of Care: Admission for observation has been considered, [however the patient is able to tolerate p.o., their symptoms are controlled, they are able to rely on oral medications, and their chief complaint/diagnosis can be managed on outpatient basis.] ?ED Course:?[No clinical deterioration] ?Shared decision making:?[Patient is hemodynamically stable for discharge home with follow with their primary care provider. [ ] Specific and cautious return precautions provided and discussed with full understanding. Any incidental findings were also discussed and follow up recommendations given. [] All questions answered. Patient/family were able to verbalize back return precautions. Patient/family agree to plan. Copies of imaging and laboratory studies were provided.] Code status:?FULL Please see the full Electronic Medical Record for full details of nursing documentation, medications list, other records of complete past medical history and conditions, vital signs, laboratory studies, and any radiologic study interpretations by radiologists. Portions of this note were completed using [employer] dictation software and as a result there may exist minor errors in spelling. I have reviewed elements of past family and social history and agree as included in note. Differential Diagnosis See body of the note for differential diagnosis Departure Disposition: 01 HOME / SELF CARE / HOMELESS Impression: Primary Impression: Cellulitis of scalp Additional Impression: Cellulitis of left breast Condition: Improved Discharge Instructions: Cellulitis, Adult, [id number] Referrals: NO PRIMARY CARE PROVIDER (PCP) Prescriptions Cephalexin*Monohydrate* (Keflex*) 500 Mg Capsule 1 CAP PO Q6H for 10 Days, #40 CAP Prov: LANDRY CABELLO DO 01/03/25 Sulfamethoxazole/Trimethoprim (Bactrim Ds Tablet) 800 Mg-160 Mg Tablet 1 TAB PO Q12H for 10 Days, #20 TAB Prov: LANDRY CABELLO DO 01/03/25 Education Educated: Patient Educated regarding: diagnosis, treatment, prognosis, need for follow up Signature Scribe Signature: No scribe Attestation: Date: Jan 03, 2025 Time: 18:35 This note accurately reflects clinical decisions, work performed by myself, Landry Cabello, LANDRY ERNANDEZ DO Jan 03, 2025 18:29
[2025-01-03] MEDS: sulfamethoxazole/trimethoprim DS (800/160mg) tablet PO ONE (18:37)
[2025-01-03] MEDS ORDERED: CEPH-585 PO (19:07)
[2025-01-03] MEDS ORDERED: SULF1TAB49 PO (19:07)
[2025-01-03 19:09] VITALS: TEMP 97.6
== END 2025-01-03 19:12 | disposition home or self-care (01) ==
LOC: ER 18:13
DX: L03.811 Cellulitis of head [any part, except face] (principal); N61.0 Mastitis without abscess; F12.90 Cannabis use, unspecified, uncomplicated; F15.90 Other stimulant use, unspecified, uncomplicated; F10.10 Alcohol abuse, uncomplicated; Z86.14 Personal history of Methicillin resistant Staphylococcus aureus infection; Z79.899 Other long term (current) drug therapy; Z56.0 Unemployment, unspecified; Z98.890 Other specified postprocedural states; Y90.9 Presence of alcohol in blood, level not specified
CPT/HCPCS: 99284

== ENCOUNTER 2025-02-11 12:40 | Emergency (ER) | payer MEDICAID ==
[~2025-02-11] VITALS: Ht 162.6 cm; Wt 70.6 kg
[~2025-02-11 12:40] MED LIST changes: -LEVO750T68 PO
[2025-02-11 12:53] VITALS: BP 117/88; PULSE 88; RESP 15; TEMP 97.8; O2SAT 97
--- NOTE | 2025-02-11 15:00 | Physician Documentation ---
History of Present Illness ~ Chief Complaint: Rash Stated Complaint: POISON OAK Time Seen by MD: 13:11 Primary Medical Doctor: NO PMD HPI Reports severe itching and possible poison oak inside her vagina. Patient denies contact with poison oak directly to the vagina or anywhere else on her body at this time. Medication Reconciliation Allergies: Coded Allergies: No Known Allergies (Unverified , 02/11/25) Scheduled Ibuprofen (Ibuprofen), 1 TAB PO Q8H Past Medical History Past Medical History: MRSA Abscess, Anxiety Past Surgical History: Patient History: FH: diabetes mellitus FATHER Maternal grandmother Alcohol Use: Abuse Drug Use: marijuana, methamphetamine Lives with: Family Lives In: Home Occupation: unemployed Review of Systems ROS As stated above in the HPI, otherwise all systems are reviewed and negative. Physical Exam Vital Signs: Temperature: 97.8, Source: Oral, Heart Rate: 88, Respiratory Rate: 15, BP: 117/88, Pulse Oximetry: 97, Weight: 70.600 Oxygen Flow Rate: 0 Physical Exam VITALS: Reviewed and as above. GENERAL: Alert, no apparent distress. SKIN: Warm and dry, no rash, unable to evaluate vagina at this time we will wait for a room. NEURO: Oriented x4, No motor or sensory deficit PSYCH: Normal mood and affect, no agitation Progress Results/Orders Results/Orders Vital Signs 02/11/25 12:53 Temp 97.8 Pulse 88 Resp 15 B/P (MAP) 117/88 Pulse Ox 97 O2 Flow Rate 0 Departure Referrals: NO PRIMARY CARE PROVIDER (PCP) JOSÉ LUIS BOYD Feb 11, 2025 15:00
[2025-02-12] MEDS ORDERED: HYDR-3927 PO (10:06)
[2025-02-14] MEDS ORDERED: PRED20TA PO (13:56)
== END 2025-02-11 16:24 | disposition left against medical advice (07) ==
LOC: ER 12:41
DX: L29.9 Pruritus, unspecified (principal); F41.9 Anxiety disorder, unspecified; F12.90 Cannabis use, unspecified, uncomplicated; F15.90 Other stimulant use, unspecified, uncomplicated; Z86.14 Personal history of Methicillin resistant Staphylococcus aureus infection; Z79.899 Other long term (current) drug therapy; Z98.890 Other specified postprocedural states; Z56.0 Unemployment, unspecified
CPT/HCPCS: 99282